=== PATIENT | male | born 1970 | race Two or more races ===

== ENCOUNTER 2020-03-01 01:33 | Inpatient (IN) | payer SELFPAY ==
[~2020-03-01] VITALS: Ht 175.3 cm; Wt 86.3 kg
--- NOTE | 2020-03-01 02:15 | PHYS DOC ---
General Adult EDM: Chief Complaint: LOWER EXT PAIN HPI: HPI: The history was obtained from the patient. Patient is a 49-year-old male with no reported PMH who presents with a chief complaint of left foot pain and swelling. Daughter was used as adjunct writing instructor via cell phone per the patient's request. Patient has had left foot pain and swelling gradually for the past 4 days. Denies any trauma or injury. 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 He denies any new footwear. States this is happened once with his left knee. He states he did receive a knee injection at that time. He is unsure what his diagnosis was at the time. Denies any known history of gout. Denies history of diabetes. Denies history of IV drug use. States it is painful to ambulate and bear weight. Has tried Tylenol at home with minimal relief. Note some mild redness and warmth to the base of his foot. Notes mild associated swelling. Denies knee pain. Denies fevers. Denies nausea or vomiting. Denies any history of peripheral vascular disease. No other compl aints. Review of Systems: Review of Systems: Constitutional: Denies fever or chills. [] Eyes: Denies change in visual acuity. [] HENT: Denies nasal congestion or sore throat. [] Respiratory: Denies cough or shortness of breath. [] Cardiovascular: Denies chest pain or edema. [] GI: Denies abdominal pain, nausea, vomiting, bloody stools or diarrhea. [] : Denies dysuria. [] Musculoskeletal: Positive for foot pain Integument: Denies rash. [] Neurologic: Denies headache, focal weakness or sensory changes. [] Endocrine: Denies polyuria or polydipsia. [] Lymphatic: Denies swollen glands. [] Psychiatric: Denies depression or anxiety. [] Heart Score: Risk Factors: Risk Factors: DM, Current or recent (<one month) smoker, HTN, HLP, family history of CAD, obesity. Risk Scores: Score 0 - 3: 2.5% MACE over next 6 weeks - Discharge Home Score 4 - 6: 20.3% MACE over next 6 weeks - Admit for Clinical Observation Score 7 - 10: 72.7% MACE over next 6 weeks - Early Invasive Strategies Physical Exam: PE: Constitutional: Well developed, well nourished, no acute distress, non-toxic appearance. [] HENT: Normocephalic, atraumatic, bilateral external ears normal, oropharynx moist, no oral exudates, nose normal. [] Eyes: PERRLA, EOMI, conjunctiva normal, no discharge. [] Neck: Normal range of motion, no tenderness, supple, no stridor. [] Cardiovascular:Heart rate regular rhythm, no murmur [] Lungs & Thorax: Bilateral breath sounds clear to auscultation [] Abdomen:soft, no tenderness, no masses, no pulsatile masses. [] Skin: Warm, dry, no erythema, no rash. [] Back: No tenderness, no CVA tenderness. [] Extremities: L KNEE/ANKLE/FOOT: Focal tenderness to palpation at the plantar aspect of the left foot.. Tissue compartments are soft. Distal pulses are 2+. Knee extension is intact. Plantar flexion is intact. Proximal fibula is not tender to palpation. Medial malleolus is not tender to palpation. Lateral malleolus is not tender to palpation. 5th metatarsal head is not tender to palpation. There is no obvious deformity. Passive ROM is reduced due to pain. Active ROM is reduced due to pain. Mild diffuse swelling noted to the left foot. Mild erythema to the plantar aspect of the left foot. No palpable fluctuance. No crepitus appreciated. No induration noted. No obvious podagra present. Neurologic: Alert and oriented X 3, normal motor function, normal sensory function, no focal deficits noted. [] Psychologic: Affect normal, judgement normal, mood normal. [] Current Patient Data: Labs: Laboratory Tests Test 03/01/20 02:10 White Blood Count 10.1 x10^3/uL Red Blood Count 5.07 x10^6/uL Hemoglobin 15.1 g/dL Hematocrit 43.2 % Mean Corpuscular Volume 85 fL Mean Corpuscular Hemoglobin 30 pg Mean Corpuscular Hemoglobin Concent 35 g/dL Red Cell Distribution Width 13.6 % Platelet Count 253 x10^3/uL Neutrophils (%) (Auto) 72 % Lymphocytes (%) (Auto) 17 % Monocytes (%) (Auto) 9 % Eosinophils (%) (Auto) 1 % Basophils (%) (Auto) 0 % Neutrophils # (Auto) 7.3 x10^3/uL Lymphocytes # (Auto) 1.7 x10^3/uL Monocytes # (Auto) 0.9 x10^3/uL Eosinophils # (Auto) 0.1 x10^3/uL Basophils # (Auto) 0.0 x10^3/uL Sodium Level 139 mmol/L Potassium Level 4.4 mmol/L Chloride Level 102 mmol/L Carbon Dioxide Level 29 mmol/L Anion Gap 8 Blood Urea Nitrogen 18 mg/dL Creatinine 1.0 mg/dL Estimated GFR (Cockcroft-Gault) 79.8 Glucose Level 113 mg/dL Calcium Level 8.7 mg/dL Current Medications Medications (Trade) Dose Ordered Sig/Yuriy Route PRN Reason Start Time Stop Time Status Last Admin Dose Admin Acetaminophen/ Hydrocodone Bitart (Lortab 5/325) 2 tab 1X ONCE PO 03/01/20 03:00 03/01/20 03:01 DC 03/01/20 02:46 Cephalexin HCl (Keflex) 1,000 mg 1X ONCE PO 03/01/20 03:00 03/01/20 03:01 DC 03/01/20 02:46 Laboratory Tests Test 03/01/20 02:10 03/01/20 05:11 White Blood Count 10.1 x10^3/uL Red Blood Count 5.07 x10^6/uL Hemoglobin 15.1 g/dL Hematocrit 43.2 % Mean Corpuscular Volume 85 fL Mean Corpuscular Hemoglobin 30 pg Mean Corpuscular Hemoglobin Concent 35 g/dL Red Cell Distribution Width 13.6 % Platelet Count 253 x10^3/uL Neutrophils (%) (Auto) 72 % Lymphocytes (%) (Auto) 17 % Monocytes (%) (Auto) 9 % Eosinophils (%) (Auto) 1 % Basophils (%) (Auto) 0 % Neutrophils # (Auto) 7.3 x10^3/uL Lymphocytes # (Auto) 1.7 x10^3/uL Monocytes # (Auto) 0.9 x10^3/uL Eosinophils # (Auto) 0.1 x10^3/uL Basophils # (Auto) 0.0 x10^3/uL Sodium Level 139 mmol/L Potassium Level 4.4 mmol/L Chloride Level 102 mmol/L Carbon Dioxide Level 29 mmol/L Anion Gap 8 Blood Urea Nitrogen 18 mg/dL Creatinine 1.0 mg/dL Estimated GFR (Cockcroft-Gault) 79.8 Glucose Level 113 mg/dL Calcium Level 8.7 mg/dL C-Reactive Protein, Quantitative 82.9 mg/L Body Fluid Source Synovial Body Fluid Color Yellow Body Fluid Clarity Cloudy Body Fluid Nucleated Cells 9500 /cmm Body Fluid Mononuclear WBCs (%) 10 % Body Fluid Polymorphonuclear Cells 90 % Body Fluid Total RBCs Counted 4250 /cmm Current Medications Medications (Trade) Dose Ordered Sig/Yuriy Route PRN Reason Start Time Stop Time Status Last Admin Dose Admin Acetaminophen/ Hydrocodone Bitart (Lortab 5/325) 2 tab 1X ONCE PO 03/01/20 03:00 03/01/20 03:01 DC 03/01/20 02:46 Cephalexin HCl (Keflex) 1,000 mg 1X ONCE PO 03/01/20 03:00 03/01/20 03:01 DC 03/01/20 02:46 Ketorolac Tromethamine (Toradol 30mg Vial) 30 mg 1X ONCE IM 03/01/20 04:00 03/01/20 04:01 DC Iohexol (Omnipaque 300 Mg/ml) 75 ml 1X ONCE IV 03/01/20 05:00 03/01/20 05:01 DC 03/01/20 05:13 Info (CONTRAST GIVEN -- Rx MONITORING) 1 each PRN DAILY PRN MC SEE COMMENTS 03/01/20 04:30 03/03/20 04:29 Ketorolac Tromethamine (Toradol 15mg Vial) 15 mg 1X ONCE IVP 03/01/20 05:00 03/01/20 05:01 DC 03/01/20 04:31 Ketorolac Tromethamine (Toradol 15mg Vial) 15 mg STK-MED ONCE .ROUTE 03/01/20 04:29 03/01/20 04:29 DC Ondansetron HCl (Zofran) 4 mg STK-MED ONCE .ROUTE 03/01/20 06:05 03/01/20 06:05 DC Vancomycin HCl 2 gm/Sodium Chloride 500 ml @ 250 mls/hr 1X ONCE IV 03/01/20 06:30 03/01/20 08:29 Ceftriaxone Sodium (Rocephin) 1 gm 1X ONCE IVP 03/01/20 06:30 03/01/20 06:31 EKG: EKG: [] Radiology/Procedures: Radiology/Procedures: [facility] [address] [place] [address] IMAGING REPORT Signed PATIENT: VIANNEY CAVAZOS ACCOUNT: [id number] : 1970 LOCATION: ER AGE: 49 SEX: M EXAM STATUS: REG ER ORD. PHYSICIAN: EMMANUEL RAMIREZ DO REASON: l ankle/foot pain and swelling. eval for infection and ankle effusion PROCEDURE: CT LOW EXTREMITY W/CONTRAST LT INDICATION: Reason: l ankle/foot pain and swelling. eval for infection and ankle effusion / Spl. Instructions: OMNI 300, 75 ML IV / History: COMPARISON: None. TECHNIQUE: Axial CT images obtained through the left ankle with contrast. One or more of the following individualized dose reduction techniques were utilized for this examination: 1. Automated exposure control; 2. Adjustment of the mA and/or kV according to patient size; 3. Use of iterative reconstruction technique. FINDINGS: Moderate tibiotalar joint effusion is seen both anteriorly and posteriorly with enhancement of the synovial lining. There is edema to the soft tissues at the ankle and foot. A definite ankle fracture is not seen. There is some degenerative changes. IMPRESSION: * Tibiotalar joint effusion is identified with synovial enhancement. Given the synovial enhancement this could be infectious or inflammatory in nature. * If there is high concern for osteomyelitis MRI or bone scan could better assess given the limitations of CT. * Degenerative changes are identified. Electronically signed by: Patience Henry MD (03/01/2020 4:47 AM) [id number] DICTATED and SIGNED BY: PATIENCE HENRY MD DATE: 03/01/20 0447 [][facility] [address] [place], [place] [id number] IMAGING REPORT Signed PATIENT: VIANNEY CAVAZOS ACCOUNT: [id number] : 1970 LOCATION: ER AGE: 49 SEX: M EXAM STATUS: PRE ER ORD. PHYSICIAN: EMMANUEL RAMIREZ DO REASON: foot pain with swelling. atraumatic PROCEDURE: FOOT LEFT 3V INDICATION: Reason: foot pain with swelling. atraumatic / Spl. Instructions: / History: COMPARISON: None. IMPRESSION: Left foot: 3 views obtained. There is some edema within the soft tissues. Degenerative changes are identified without a definite acute fracture or dislocation. Suspected tibiotalar joint effusion. Small plantar calcaneal spur. Electronically signed by: Patience Henry MD (03/01/2020 2:56 AM) [id number] DICTATED and SIGNED BY: PATIENCE HENRY MD DATE: 03/01/20 0256 Procedure Arthrocentesis The indication, was to rule-out septic arthritis of the ankle as well as to further evaluate for the cause of the patient's effusion, such as gout or pseudogout. The risks (infection, bleeding, pain, etc) and the benefits were discussed with the patient, and verbal consent was given to proceed. The appropriate land coleman were identified. Skin was sterilized with Betadine. Then using a sterile 18g needle, and sterile technique, I then inserted the needle in the medial anterior position, while withdrawing on the syringe plunger. 2 MLs of serous synovial fluid was obtained. This was sent down to the lab for joint analysis, as well as for culture. A dressing was placed, and the patient tolerated the procedure well. My repeat neurovascular exam post- procedure was unchanged. Instructions were given to seek immediate care for increasing pain, increasing redness, streaking, or any other worrisome concerns. Course & Med Decision Making: Course & Med Decision Making Pertinent Labs and Imaging studies reviewed. (See chart for details) Patient is a 49-year-old male who presents with chief complaint of left ankle and foot swelling atraumatic nature of the past several days. Initial vital signs unremarkable. Labs show no signs of leukocytosis. CRP was significantly elevated. CT imaging of the left ankle joint does reveal moderate effusion. Arthrocentesis performed and noted above. Synovial fluid analysis likely not consistent with septic arthritis however he does have approximately 10,000 white blood cells. With neutrophilic predominance. Synovial fluid cultures are pending at this time. He was given vancomycin and Rocephin. At the end of arthrocentesis procedure patient did have a vasovagal episode and syncopized briefly. He was quickly alert and responsive shortly following. However, patient did have another episode where he experienced vasovagal syncope and was unresponsive for 3 to 5 seconds. Heart rate did drop to approximately 25 and blood pressure dropped to 65/40. No atropine or pacing was required. Patient did receive 2 L normal saline bolus. This did improve his vital signs significantly. Patient did remain hemodynamically stable after this episode. He will require hospitalization for further work-up of his left ankle joint effusion and monitoring of his vasovagal episodes. Dragon Disclaimer: Dragon Disclaimer: This electronic medical record was generated, in whole or in part, using a voice recognition dictation system. Departure Departure Impression: Primary Impression: Left ankle effusion Additional Impressions: Vasovagal syncope Bradycardia Disposition: ADMITTED INPATIENT Condition: STABLE Justicifation of Admission Dx: Justifications for Admission: Justification of Admission Dx: Yes Comments: L ankle effusions and vasovagal syncope EMMANUEL RAMIREZ DO Mar 01, 2020 02:15
[2020-03-01 02:33] LABS: BASO % 0 % (0-3); EOS # 0.1 x10^3/uL (0.0-0.7); EOS % 1 % (0-3); HEMATOCRIT 43.2 % (39.0-53.0); HEMOGLOBIN 15.1 g/dL (13.0-17.5); LYMPH # 1.7 x10^3/uL (1.0-4.8); LYMPH % 17 % (24-48); MEAN CORPUSCULAR HEMOGLOBIN 30 pg (25-35); MEAN CORPUSCULAR HGB CONC 35 g/dL (31-37); MEAN CORPUSCULAR VOLUME 85 fL (79-100); MONO # 0.9 x10^3/uL (0.0-1.1); MONO % 9 % (0-9); NEUT # 7.3 x10^3/uL (1.8-7.7); NEUT % 72 % (31-73); PLATELET COUNT 253 x10^3/uL (140-400); RED BLOOD COUNT 5.07 x10^6/uL (4.30-5.70); RED CELL DISTRIBUTION WIDTH 13.6 % (11.5-14.5); WHITE BLOOD COUNT 10.1 x10^3/uL (4.0-11.0)
[2020-03-01 02:44] LABS: CALCIUM 8.7 mg/dL (8.5-10.1); GFR 79.8; POTASSIUM 4.4 mmol/L (3.5-5.1)
--- NOTE | 2020-03-01 02:59 | RAD ---
INDICATION: Reason: foot pain with swelling. atraumatic / Spl. Instructions: / History: COMPARISON: None. IMPRESSION: Left foot: 3 views obtained. There is some edema within the soft tissues. Degenerative changes are identified without a definite acute fracture or dislocation. Suspected tibiotalar joint effusion. Small plantar calcaneal spur. Electronically signed by: Marcus Sharma MD (03/01/2020 2:56 AM) [id number]
[2020-03-01] MEDS ORDERED: HYDROcodone/APAP 5/325MG 1 TAB TABLET PO ONE (03:00)
[2020-03-01] MEDS ORDERED: CEPHALEXIN 250 MG CAPSULE. PO ONE (03:00)
[2020-03-01] MEDS ORDERED: KETOROLAC 30 MG/ML VIAL. IM ONE (04:00)
[2020-03-01] MEDS ORDERED: KETOROLAC 15 MG/ML VIAL. ONE (04:29)
[2020-03-01] MEDS ORDERED: CONTRAST GIVEN. MC PRN (04:30)
--- NOTE | 2020-03-01 04:49 | RAD ---
INDICATION: Reason: l ankle/foot pain and swelling. eval for infection and ankle effusion / Spl. Instructions: OMNI 300, 75 ML IV / History: COMPARISON: None. TECHNIQUE: Axial CT images obtained through the left ankle with contrast. One or more of the following individualized dose reduction techniques were utilized for this examination: 1. Automated exposure control; 2. Adjustment of the mA and/or kV according to patient size; 3. Use of iterative reconstruction technique. FINDINGS: Moderate tibiotalar joint effusion is seen both anteriorly and posteriorly with enhancement of the synovial lining. There is edema to the soft tissues at the ankle and foot. A definite ankle fracture is not seen. There is some degenerative changes. IMPRESSION: * Tibiotalar joint effusion is identified with synovial enhancement. Given the synovial enhancement this could be infectious or inflammatory in nature. * If there is high concern for osteomyelitis MRI or bone scan could better assess given the limitations of CT. * Degenerative changes are identified. Electronically signed by: Marcus Sharma MD (03/01/2020 4:47 AM) [id number]
[2020-03-01] MEDS ORDERED: IOHEXOL 300 MG/ML 100ML VIAL. IV ONE (05:00)
[2020-03-01] MEDS ORDERED: KETOROLAC 15 MG/ML VIAL. IVP ONE (05:00)
[2020-03-01 05:57] LABS: BF COLOR YELLOW; BF SOURCE SYNOVIAL
[2020-03-01 05:58] LABS: BF CLARITY CLOUDY; BF MON % 10 %; BF PMN % 90 %; BF RBC COUNT 4250 /cmm (Not Established); BF WBC COUNT 9500 /cmm (Not Established)
[2020-03-01] MEDS ORDERED: ONDANSETRON PF 4 MG/2 ML VIAL. ONE (06:05)
[2020-03-01] MEDS ORDERED: ONDANSETRON PF 4 MG/2 ML VIAL. IV PRN (06:30)
[2020-03-01] MEDS ORDERED: VANCOMYCIN 2 GM in IV NORMAL SALINE 500ML BAG 500 ML IV ONE (06:30)
[2020-03-01] MEDS ORDERED: cefTRIAXone IV Push 1 GM VIAL. IVP ONE (06:30)
[2020-03-01] MEDS: VANCOMYCIN PER PHARMACY MC PRN (06:47)
--- NOTE | 2020-03-01 06:48 | NUR ---
Pharmacy Vancomycin Dosing Note S:Consulted to monitor and dose vancomycin started 03/01/20. O:VIANNEY CAVAZOS is a 49 year old M with Empiric . Height: 5 feet, 9 inches Weight: 86.3 kg Rugby Body Weight: 70.70 Adjusted Body Weight: 76.94 Dosing Weight: Actual Other Antibiotics: LABS: Last BUN: 18 Last Creatinine: 1 Creatinine Clearance: 98 mL/min Last WBC: 10.1 Last Procalcitonin: Tmax (past 24 hours): 98.1 Microbiology: I/O: Drug Levels: Last level: on at Last dose given 03/01/20 at 0630 Vancomycin Dosing: Loading Dose: 2000 mg x1 Dosing Weight: Actual Target Trough: 15-20 A: Based on: WT AND CRCL P: 1. Begin Vancomycin 1250 mg IV q12h 2. Follow up Trough level on 03/02/20 at 1830 3. Pharmacy will continue to monitor, follow and adjust therapy as needed. KATIE STARK RPH, 03/01/20 [facility] Signed: 03/01/20 at 0648 by KATIE STARK RPH PHA
--- NOTE | 2020-03-01 09:26 | PDOC1 ---
History and Physical Date of Service: DOS: DATE: 03/01/20 TIME: 09:22 Chief Complaint: Chief Complain: left lower extremity pain History of Present Illness: HPI: Patient is a 49-year-old male Turkmen-speaking who comes to the ED with left foot pain and swelling that has progressively worsened the past 4 days. Pain is a 10 and patient notes is unable to move his ankle. Patient states that even pl acing bedsheets over his foot causes him severe pain. Most of the history was obtained with the daughter in the room. 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 Patient also states that swelling had also occurred in his left knee and he did get a steroid injection at that time. Denies fevers, malaise, rashes, dysuria, diarrhea, abdominal pain, chest pain, or joint disfiguration. Past Medical/Surgical History: PMH/PSH: Reviewed and none reported Allergies: Allergies: Coded Allergies: No Known Drug Allergies (Unverified , 03/01/20) Family History: Family History: Reviewed and none reported. No family history of rheumatoid arthritis. Social History: Social History: Denies alcohol, smoking, drug abuse Current Medications: Current Medications Current Medications Acetaminophen/ Hydrocodone Bitart (Lortab 5/325) 2 tab 1X ONCE PO Last administered on 03/01/20at 02:46; Start 03/01/20 at 03:00; Stop 03/01/20 at 03:01; Status DC Cephalexin HCl (Keflex) 1,000 mg 1X ONCE PO Last administered on 03/01/20at 02:46; Start 03/01/20 at 03:00; Stop 03/01/20 at 03:01; Status DC Ketorolac Tromethamine (Toradol 30mg Vial) 30 mg 1X ONCE IM ; Start 03/01/20 at 04:00; Stop 03/01/20 at 04:01; Status DC Iohexol (Omnipaque 300 Mg/ml) 75 ml 1X ONCE IV Last administered on 03/01/20at 05:13; Start 03/01/20 at 05:00; Stop 03/01/20 at 05:01; Status DC Info (CONTRAST GIVEN -- Rx MONITORING) 1 each PRN DAILY PRN MC SEE COMMENTS; Start 03/01/20 at 04:30; Stop 03/03/20 at 04:29 Ketorolac Tromethamine (Toradol 15mg Vial) 15 mg 1X ONCE IVP Last administered on 03/01/20at 04:31; Start 03/01/20 at 05:00; Stop 03/01/20 at 05:01; Status DC Ketorolac Tromethamine (Toradol 15mg Vial) 15 mg STK-MED ONCE .ROUTE ; Start 03/01/20 at 04:29; Stop 03/01/20 at 04:29; Status DC Ondansetron HCl (Zofran) 4 mg STK-MED ONCE .ROUTE ; Start 03/01/20 at 06:05; Stop 03/01/20 at 06:05; Status DC Vancomycin HCl 2 gm/Sodium Chloride 500 ml @ 250 mls/hr 1X ONCE IV Last administered on 03/01/20at 06:23; Start 03/01/20 at 06:30; Stop 03/01/20 at 08:29; Status DC Ceftriaxone Sodium (Rocephin) 1 gm 1X ONCE IVP Last administered on 03/01/20at 06:23; Start 03/01/20 at 06:30; Stop 03/01/20 at 06:31; Status DC Ondansetron HCl (Zofran) 4 mg PRN Q8HRS PRN IV NAUSEA/VOMITING 1ST CHOICE; Start 03/01/20 at 06:30; Stop 03/02/20 at 06:29 Morphine Sulfate (Morphine Sulfate) 4 mg PRN Q2HR PRN IV SEVERE PAIN 7-10; Start 03/01/20 at 06:30; Stop 03/02/20 at 06:29 Vancomycin HCl (Vanco Per Pharmacy) 1 each PRN DAILY PRN MC SEE COMMENTS Last administered on 03/01/20at 06:47; Start 03/01/20 at 06:30 Vancomycin HCl 1.25 gm/Sodium Chloride 250 ml @ 167 mls/hr Q12H IV ; Start 03/01/20 at 19:00 Vancomycin HCl (Vancomycin Trough Level) 1 each 1X ONCE MC ; Start 03/02/20 at 18:30; Stop 03/02/20 at 18:31 ROS: Review of Systems Review of System REVIEW OF SYSTEMS: GENERAL: Denies weakness SKIN: No bruising, hair changes or rashes. EYES: No blurred, double or loss of vision. NOSE AND THROAT: No history of nosebleeds, hoarseness or sore throat. HEART: No history of palpitations, chest pain or shortness of breath on exertion. LUNGS: Denies cough, hemoptysis, wheezing or shortness of breath. GASTROINTESTINAL: Denies changes in appetite, nausea, vomiting, diarrhea or constipation. GENITOURINARY: No history of frequency, urgency, hesitancy or nocturia. NEUROLOGIC: Denies history of numbness, tingling, or tremor. PSYCHIATRIC: No history of panic, anxiety or depression. ENDOCRINE: No history of heat or cold intolerance, polyuria or polydipsia. EXTREMITIES: Denies joint pain, pain on walking or stiffness. Physical Exam: Vital Signs: Vital Signs Date Time Temp Pulse Resp B/P (MAP) Pulse Ox O2 Delivery O2 Flow Rate FiO2 03/01/20 07:14 97.9 78 15 129/82 (98) 97 Room Air 97.9 Physcial Exam: GEN: No apparent distress. Alert and oriented HEENT: Normal cephalic, atraumatic, external auditory canals are patent EYES: Extraocular muscles are intact, pupil are equally round and reactive to light and accommodation MUSCULOSKELETAL: Well developed , well nourished, good range of motion ENDOCRINE: No thyromegaly was palpated LYMPHATICS: No cervical chain or axillary nodes were noted HEMATOPOIETIC: No bruising NECK: Supple, no JVD, no thyromegaly was noted LUNGS: Clear to auscultation in all lung euceda without rhonchi or wheezing HEART: RRR, S!, S2 present. Peripheral pulses intact, no obvious murmurs noted ABDOMEN: Soft, nontender. Positive bowel sounds, no organomegaly, normal bowel sounds EXTREMITIES: Without clubbing, cyanosis, or edema. Pedal pulses intact. Negative Homans sign NEUROLOGIC: Normal speech and tone. A&O x 3, moves all extremities, no obvious focal deficits PSYCHIATRIC: Normal affect, normal mood. Stable SKIN: No ulcerations or rashes, good skin turgor, no jaundice VASCULAR: Good capillary refill, neurovascular bundle appears to be intact Labs: Labs: Laboratory Tests Test 03/01/20 02:10 03/01/20 05:11 White Blood Count 10.1 x10^3/uL (4.0-11.0) Red Blood Count 5.07 x10^6/uL (4.30-5.70) Hemoglobin 15.1 g/dL (13.0-17.5) Hematocrit 43.2 % (39.0-53.0) Mean Corpuscular Volume 85 fL (79-100) Mean Corpuscular Hemoglobin 30 pg (25-35) Mean Corpuscular Hemoglobin Concent 35 g/dL (31-37) Red Cell Distribution Width 13.6 % (11.5-14.5) Platelet Count 253 x10^3/uL (140-400) Neutrophils (%) (Auto) 72 % (31-73) Lymphocytes (%) (Auto) 17 % (24-48) Monocytes (%) (Auto) 9 % (0-9) Eosinophils (%) (Auto) 1 % (0-3) Basophils (%) (Auto) 0 % (0-3) Neutrophils # (Auto) 7.3 x10^3/uL (1.8-7.7) Lymphocytes # (Auto) 1.7 x10^3/uL (1.0-4.8) Monocytes # (Auto) 0.9 x10^3/uL (0.0-1.1) Eosinophils # (Auto) 0.1 x10^3/uL (0.0-0.7) Basophils # (Auto) 0.0 x10^3/uL (0.0-0.2) Sodium Level 139 mmol/L (136-145) Potassium Level 4.4 mmol/L (3.5-5.1) Chloride Level 102 mmol/L (98-107) Carbon Dioxide Level 29 mmol/L (21-32) Anion Gap 8 (6-14) Blood Urea Nitrogen 18 mg/dL (8-26) Creatinine 1.0 mg/dL (0.7-1.3) Estimated GFR (Cockcroft-Gault) 79.8 Glucose Level 113 mg/dL (70-99) Calcium Level 8.7 mg/dL (8.5-10.1) C-Reactive Protein, Quantitative 82.9 mg/L (0-3.3) Body Fluid Source Synovial Body Fluid Color Yellow Body Fluid Clarity Cloudy Body Fluid Nucleated Cells 9500 /cmm (Not Established) Body Fluid Mononuclear WBCs (%) 10 % Body Fluid Polymorphonuclear Cells 90 % Body Fluid Total RBCs Counted 4250 /cmm (Not Established) Laboratory Tests Test 03/01/20 02:10 03/01/20 05:11 White Blood Count 10.1 x10^3/uL (4.0-11.0) Red Blood Count 5.07 x10^6/uL (4.30-5.70) Hemoglobin 15.1 g/dL (13.0-17.5) Hematocrit 43.2 % (39.0-53.0) Mean Corpuscular Volume 85 fL (79-100) Mean Corpuscular Hemoglobin 30 pg (25-35) Mean Corpuscular Hemoglobin Concent 35 g/dL (31-37) Red Cell Distribution Width 13.6 % (11.5-14.5) Platelet Count 253 x10^3/uL (140-400) Neutrophils (%) (Auto) 72 % (31-73) Lymphocytes (%) (Auto) 17 % (24-48) Monocytes (%) (Auto) 9 % (0-9) Eosinophils (%) (Auto) 1 % (0-3) Basophils (%) (Auto) 0 % (0-3) Neutrophils # (Auto) 7.3 x10^3/uL (1.8-7.7) Lymphocytes # (Auto) 1.7 x10^3/uL (1.0-4.8) Monocytes # (Auto) 0.9 x10^3/uL (0.0-1.1) Eosinophils # (Auto) 0.1 x10^3/uL (0.0-0.7) Basophils # (Auto) 0.0 x10^3/uL (0.0-0.2) Sodium Level 139 mmol/L (136-145) Potassium Level 4.4 mmol/L (3.5-5.1) Chloride Level 102 mmol/L (98-107) Carbon Dioxide Level 29 mmol/L (21-32) Anion Gap 8 (6-14) Blood Urea Nitrogen 18 mg/dL (8-26) Creatinine 1.0 mg/dL (0.7-1.3) Estimated GFR (Cockcroft-Gault) 79.8 Glucose Level 113 mg/dL (70-99) Calcium Level 8.7 mg/dL (8.5-10.1) C-Reactive Protein, Quantitative 82.9 mg/L (0-3.3) Body Fluid Source Synovial Body Fluid Color Yellow Body Fluid Clarity Cloudy Body Fluid Nucleated Cells 9500 /cmm (Not Established) Body Fluid Mononuclear WBCs (%) 10 % Body Fluid Polymorphonuclear Cells 90 % Body Fluid Total RBCs Counted 4250 /cmm (Not Established) Images: Images Left FOOT XR IMPRESSION: Left foot: 3 views obtained. There is some edema within the soft tissues. Degenerative changes are identified without a definite acute fracture or dislocation. Suspected tibiotalar joint effusion. Small plantar calcaneal spur. LLE CT IMPRESSION: * Tibiotalar joint effusion is identified with synovial enhancement. Given the synovial enhancement this could be infectious or inflammatory in nature. * If there is high concern for osteomyelitis MRI or bone scan could better assess given the limitations of CT. * Degenerative changes are identified. Assessment/Plan Assessment/Plan Left tibiotalar joint effusion and degenerative changes are identified with synovial enhancement. Admit to medicine Leg elevation Pain control Ortho consult Lovenox for DVT prophylaxis ADA diet Full code Discussed with RN and SW Disposition pending Ortho evaluation Surrogate decision maker is the Justifications for Admission Other Justification BRENT BARNES MD Mar 01, 2020 09:26
--- NOTE | 2020-03-01 09:44 | PDOC2 ---
CONSULT Date of Consult Date of Consult DATE: 03/01/20 TIME: 09:42 Current Problem List Problem List Problems Medical Problems: (1) Bradycardia Status: Acute (2) Left ankle effusion Status: Acute (3) Vasovagal syncope Status: Acute Current Medications Current Medications Current Medications Acetaminophen/ Hydrocodone Bitart (Lortab 5/325) 2 tab 1X ONCE PO Last administered on 03/01/20at 02:46; Start 03/01/20 at 03:00; Stop 03/01/20 at 03:01; Status DC Cephalexin HCl (Keflex) 1,000 mg 1X ONCE PO Last administered on 03/01/20at 02:46; Start 03/01/20 at 03:00; Stop 03/01/20 at 03:01; Status DC Ketorolac Tromethamine (Toradol 30mg Vial) 30 mg 1X ONCE IM ; Start 03/01/20 at 04:00; Stop 03/01/20 at 04:01; Status DC Iohexol (Omnipaque 300 Mg/ml) 75 ml 1X ONCE IV Last administered on 03/01/20at 05:13; Start 03/01/20 at 05:00; Stop 03/01/20 at 05:01; Status DC Info (CONTRAST GIVEN -- Rx MONITORING) 1 each PRN DAILY PRN MC SEE COMMENTS; Start 03/01/20 at 04:30; Stop 03/03/20 at 04:29 Ketorolac Tromethamine (Toradol 15mg Vial) 15 mg 1X ONCE IVP Last administered on 03/01/20at 04:31; Start 03/01/20 at 05:00; Stop 03/01/20 at 05:01; Status DC Ketorolac Tromethamine (Toradol 15mg Vial) 15 mg STK-MED ONCE .ROUTE ; Start 03/01/20 at 04:29; Stop 03/01/20 at 04:29; Status DC Ondansetron HCl (Zofran) 4 mg STK-MED ONCE .ROUTE ; Start 03/01/20 at 06:05; Stop 03/01/20 at 06:05; Status DC Vancomycin HCl 2 gm/Sodium Chloride 500 ml @ 250 mls/hr 1X ONCE IV Last administered on 03/01/20at 06:23; Start 03/01/20 at 06:30; Stop 03/01/20 at 08:29; Status DC Ceftriaxone Sodium (Rocephin) 1 gm 1X ONCE IVP Last administered on 03/01/20at 06:23; Start 03/01/20 at 06:30; Stop 03/01/20 at 06:31; Status DC Ondansetron HCl (Zofran) 4 mg PRN Q8HRS PRN IV NAUSEA/VOMITING 1ST CHOICE; Start 03/01/20 at 06:30; Stop 03/02/20 at 06:29 Morphine Sulfate (Morphine Sulfate) 4 mg PRN Q2HR PRN IV SEVERE PAIN 7-10; Start 03/01/20 at 06:30; Stop 03/02/20 at 06:29 Vancomycin HCl (Vanco Per Pharmacy) 1 each PRN DAILY PRN MC SEE COMMENTS Last administered on 03/01/20at 06:47; Start 03/01/20 at 06:30 Vancomycin HCl 1.25 gm/Sodium Chloride 250 ml @ 167 mls/hr Q12H IV ; Start 03/01/20 at 19:00 Vancomycin HCl (Vancomycin Trough Level) 1 each 1X ONCE MC ; Start 03/02/20 at 18:30; Stop 03/02/20 at 18:31 Allergies Allergies: Coded Allergies: No Known Drug Allergies (Unverified , 03/01/20) Vitals VITALS Vital Signs Date Time Temp Pulse Resp B/P (MAP) Pulse Ox O2 Delivery O2 Flow Rate FiO2 03/01/20 07:14 97.9 78 15 129/82 (98) 97 Room Air 97.9 Labs Labs Laboratory Tests Test 03/01/20 02:10 03/01/20 05:11 White Blood Count 10.1 x10^3/uL (4.0-11.0) Red Blood Count 5.07 x10^6/uL (4.30-5.70) Hemoglobin 15.1 g/dL (13.0-17.5) Hematocrit 43.2 % (39.0-53.0) Mean Corpuscular Volume 85 fL (79-100) Mean Corpuscular Hemoglobin 30 pg (25-35) Mean Corpuscular Hemoglobin Concent 35 g/dL (31-37) Red Cell Distribution Width 13.6 % (11.5-14.5) Platelet Count 253 x10^3/uL (140-400) Neutrophils (%) (Auto) 72 % (31-73) Lymphocytes (%) (Auto) 17 % (24-48) Monocytes (%) (Auto) 9 % (0-9) Eosinophils (%) (Auto) 1 % (0-3) Basophils (%) (Auto) 0 % (0-3) Neutrophils # (Auto) 7.3 x10^3/uL (1.8-7.7) Lymphocytes # (Auto) 1.7 x10^3/uL (1.0-4.8) Monocytes # (Auto) 0.9 x10^3/uL (0.0-1.1) Eosinophils # (Auto) 0.1 x10^3/uL (0.0-0.7) Basophils # (Auto) 0.0 x10^3/uL (0.0-0.2) Sodium Level 139 mmol/L (136-145) Potassium Level 4.4 mmol/L (3.5-5.1) Chloride Level 102 mmol/L (98-107) Carbon Dioxide Level 29 mmol/L (21-32) Anion Gap 8 (6-14) Blood Urea Nitrogen 18 mg/dL (8-26) Creatinine 1.0 mg/dL (0.7-1.3) Estimated GFR (Cockcroft-Gault) 79.8 Glucose Level 113 mg/dL (70-99) Calcium Level 8.7 mg/dL (8.5-10.1) C-Reactive Protein, Quantitative 82.9 mg/L (0-3.3) Body Fluid Source Synovial Body Fluid Color Yellow Body Fluid Clarity Cloudy Body Fluid Nucleated Cells 9500 /cmm (Not Established) Body Fluid Mononuclear WBCs (%) 10 % Body Fluid Polymorphonuclear Cells 90 % Body Fluid Total RBCs Counted 4250 /cmm (Not Established) Laboratory Tests Test 03/01/20 02:10 03/01/20 05:11 White Blood Count 10.1 x10^3/uL (4.0-11.0) Red Blood Count 5.07 x10^6/uL (4.30-5.70) Hemoglobin 15.1 g/dL (13.0-17.5) Hematocrit 43.2 % (39.0-53.0) Mean Corpuscular Volume 85 fL (79-100) Mean Corpuscular Hemoglobin 30 pg (25-35) Mean Corpuscular Hemoglobin Concent 35 g/dL (31-37) Red Cell Distribution Width 13.6 % (11.5-14.5) Platelet Count 253 x10^3/uL (140-400) Neutrophils (%) (Auto) 72 % (31-73) Lymphocytes (%) (Auto) 17 % (24-48) Monocytes (%) (Auto) 9 % (0-9) Eosinophils (%) (Auto) 1 % (0-3) Basophils (%) (Auto) 0 % (0-3) Neutrophils # (Auto) 7.3 x10^3/uL (1.8-7.7) Lymphocytes # (Auto) 1.7 x10^3/uL (1.0-4.8) Monocytes # (Auto) 0.9 x10^3/uL (0.0-1.1) Eosinophils # (Auto) 0.1 x10^3/uL (0.0-0.7) Basophils # (Auto) 0.0 x10^3/uL (0.0-0.2) Sodium Level 139 mmol/L (136-145) Potassium Level 4.4 mmol/L (3.5-5.1) Chloride Level 102 mmol/L (98-107) Carbon Dioxide Level 29 mmol/L (21-32) Anion Gap 8 (6-14) Blood Urea Nitrogen 18 mg/dL (8-26) Creatinine 1.0 mg/dL (0.7-1.3) Estimated GFR (Cockcroft-Gault) 79.8 Glucose Level 113 mg/dL (70-99) Calcium Level 8.7 mg/dL (8.5-10.1) C-Reactive Protein, Quantitative 82.9 mg/L (0-3.3) Body Fluid Source Synovial Body Fluid Color Yellow Body Fluid Clarity Cloudy Body Fluid Nucleated Cells 9500 /cmm (Not Established) Body Fluid Mononuclear WBCs (%) 10 % Body Fluid Polymorphonuclear Cells 90 % Body Fluid Total RBCs Counted 4250 /cmm (Not Established) Images Images Ankle x-ray report reviewed and images independently reviewed. There are some small tibiotalar osteophytes, minor degenerative changes. No acute fracture. [facility] [address] [place] [address] IMAGING REPORT Signed PATIENT: VIANNEY CAVAZOS ACCOUNT: [id number] : 1970 LOCATION: ER AGE: 49 SEX: M EXAM STATUS: PRE ER ORD. PHYSICIAN: EMMANUEL RAMIREZ DO REASON: foot pain with swelling. atraumatic PROCEDURE: FOOT LEFT 3V INDICATION: Reason: foot pain with swelling. atraumatic / Spl. Instructions: / History: COMPARISON: None. IMPRESSION: Left foot: 3 views obtained. There is some edema within the soft tissues. Degenerative changes are identified without a definite acute fracture or dislocation. Suspected tibiotalar joint effusion. Small plantar calcaneal spur. Electronically signed by: Patience Henry MD (03/01/2020 2:56 AM) [id number] DICTATED and SIGNED BY: PATIENCE HENRY MD DATE: 03/01/[address] ankle report reviewed and images independently reviewed. The small ankle effusion or synovial inflammation is seen on series 5 image 31. [facility] [address] [address] IMAGING REPORT Signed PATIENT: VIANNEY CAVAZOS ACCOUNT: [id number] : 1970 LOCATION: ER AGE: 49 SEX: M EXAM STATUS: REG ER ORD. PHYSICIAN: EMMANUEL RAMIREZ DO REASON: l ankle/foot pain and swelling. eval for infection and ankle effusion PROCEDURE: CT LOW EXTREMITY W/CONTRAST LT INDICATION: Reason: l ankle/foot pain and swelling. eval for infection and ankle effusion / Spl. Instructions: OMNI 300, 75 ML IV / History: COMPARISON: None. TECHNIQUE: Axial CT images obtained through the left ankle with contrast. One or more of the following individualized dose reduction techniques were utilized for this examination: 1. Automated exposure control; 2. Adjustment of the mA and/or kV according to patient size; 3. Use of iterative reconstruction technique. FINDINGS: Moderate tibiotalar joint effusion is seen both anteriorly and posteriorly with enhancement of the synovial lining. There is edema to the soft tissues at the ankle and foot. A definite ankle fracture is not seen. There is some degenerative changes. IMPRESSION: * Tibiotalar joint effusion is identified with synovial enhancement. Given the synovial enhancement this could be infectious or inflammatory in nature. * If there is high concern for osteomyelitis MRI or bone scan could better assess given the limitations of CT. * Degenerative changes are identified. Electronically signed by: Patience Henry MD (03/01/2020 4:47 AM) [id number] DICTATED and SIGNED BY: PATIENCE HENRY MD DATE: 03/01/20 0447 KAREN TOURE MD Mar 01, 2020 09:43
[2020-03-01] MEDS: MORPHINE SULFATE 4 MG/ML VIAL. IV PRN ×4 (12:45→22:46)
[2020-03-01] MEDS ORDERED: SENNOSIDES 8.6 MG TABLET PO PRN (16:00)
[2020-03-01] MEDS ORDERED: DOCUSATE SODIUM 100 MG CAPSULE. PO PRN (16:00)
[2020-03-01] MEDS ORDERED: ONDANSETRON PF 4 MG/2 ML VIAL. IVP PRN (16:00)
[2020-03-01] MEDS: ENOXAPARIN 40 MG/0.4 ML SYRINGE. SQ SCH (17:29)
[2020-03-01 19:15] VITALS: BP 141/82
[2020-03-01] MEDS: VANCOMYCIN 1.25 GM in IV NORMAL SALINE 250ML 250 ML IV SCH (20:18)
[2020-03-01 23:12] VITALS: BP 126/70
[2020-03-02 03:11] VITALS: BP 130/74
[2020-03-02] MEDS: MORPHINE SULFATE 4 MG/ML VIAL. IV PRN (06:30)
[2020-03-02 06:51] LABS: BASO % 1 % (0-3); EOS % 0 % (0-3); HEMATOCRIT 39.1 % (39.0-53.0); HEMOGLOBIN 13.5 g/dL (13.0-17.5); LYMPH % 11 % (24-48); MEAN CORPUSCULAR HEMOGLOBIN 29 pg (25-35); MEAN CORPUSCULAR HGB CONC 34 g/dL (31-37); MEAN CORPUSCULAR VOLUME 85 fL (79-100); MONO # 0.8 x10^3/uL (0.0-1.1); MONO % 9 % (0-9); NEUT # 7.2 x10^3/uL (1.8-7.7); NEUT % 79 % (31-73); PLATELET COUNT 247 x10^3/uL (140-400); RED CELL DISTRIBUTION WIDTH 13.7 % (11.5-14.5); WHITE BLOOD COUNT 9.1 x10^3/uL (4.0-11.0)
[2020-03-02 07:00] VITALS: BP 148/89
[2020-03-02] MEDS: VANCOMYCIN 1.25 GM in IV NORMAL SALINE 250ML 250 ML IV SCH (07:59)
--- NOTE | 2020-03-02 09:44 | NUR ---
SW following. Discussed with RN, pt from home, using crutches, room air, regular diet. PT ordered, pt on IV vanco. Med Assist following for self pay status. SW will continue to follow.
--- NOTE | 2020-03-02 10:42 | PDOC ---
ORTHO PROGRESS NOTES DATE: 03/02/20 TIME: 10:38 Subjective Communication with the aid of the patient's son as news librarian. Patient states that he is painful and that this has happened before. Procedure No specific trauma or injury noted. Vitals Vital Signs Date Time Temp Pulse Resp B/P (MAP) Pulse Ox O2 Delivery O2 Flow Rate FiO2 03/02/20 07:00 98.0 93 18 148/89 (108) 94 Room Air 98.0 Labs Laboratory Tests Test 03/01/20 02:10 03/01/20 05:11 03/02/20 06:10 White Blood Count 10.1 x10^3/uL (4.0-11.0) 9.1 x10^3/uL (4.0-11.0) Red Blood Count 5.07 x10^6/uL (4.30-5.70) 4.60 x10^6/uL (4.30-5.70) Hemoglobin 15.1 g/dL (13.0-17.5) 13.5 g/dL (13.0-17.5) Hematocrit 43.2 % (39.0-53.0) 39.1 % (39.0-53.0) Mean Corpuscular Volume 85 fL (79-100) 85 fL (79-100) Mean Corpuscular Hemoglobin 30 pg (25-35) 29 pg (25-35) Mean Corpuscular Hemoglobin Concent 35 g/dL (31-37) 34 g/dL (31-37) Red Cell Distribution Width 13.6 % (11.5-14.5) 13.7 % (11.5-14.5) Platelet Count 253 x10^3/uL (140-400) 247 x10^3/uL (140-400) Neutrophils (%) (Auto) 72 % (31-73) 79 % (31-73) Lymphocytes (%) (Auto) 17 % (24-48) 11 % (24-48) Monocytes (%) (Auto) 9 % (0-9) 9 % (0-9) Eosinophils (%) (Auto) 1 % (0-3) 0 % (0-3) Basophils (%) (Auto) 0 % (0-3) 1 % (0-3) Neutrophils # (Auto) 7.3 x10^3/uL (1.8-7.7) 7.2 x10^3/uL (1.8-7.7) Lymphocytes # (Auto) 1.7 x10^3/uL (1.0-4.8) 1.0 x10^3/uL (1.0-4.8) Monocytes # (Auto) 0.9 x10^3/uL (0.0-1.1) 0.8 x10^3/uL (0.0-1.1) Eosinophils # (Auto) 0.1 x10^3/uL (0.0-0.7) 0.0 x10^3/uL (0.0-0.7) Basophils # (Auto) 0.0 x10^3/uL (0.0-0.2) 0.0 x10^3/uL (0.0-0.2) Sodium Level 139 mmol/L (136-145) Potassium Level 4.4 mmol/L (3.5-5.1) Chloride Level 102 mmol/L (98-107) Carbon Dioxide Level 29 mmol/L (21-32) Anion Gap 8 (6-14) Blood Urea Nitrogen 18 mg/dL (8-26) Creatinine 1.0 mg/dL (0.7-1.3) Estimated GFR (Cockcroft-Gault) 79.8 Glucose Level 113 mg/dL (70-99) Calcium Level 8.7 mg/dL (8.5-10.1) C-Reactive Protein, Quantitative 82.9 mg/L (0-3.3) Body Fluid Source Synovial Body Fluid Color Yellow Body Fluid Clarity Cloudy Body Fluid Nucleated Cells 9500 /cmm (Not Established) Body Fluid Mononuclear WBCs (%) 10 % Body Fluid Polymorphonuclear Cells 90 % Body Fluid Total RBCs Counted 4250 /cmm (Not Established) Uric Acid 5.4 mg/dL (3.5-7.2) Laboratory Tests Test 03/02/20 06:10 White Blood Count 9.1 x10^3/uL (4.0-11.0) Red Blood Count 4.60 x10^6/uL (4.30-5.70) Hemoglobin 13.5 g/dL (13.0-17.5) Hematocrit 39.1 % (39.0-53.0) Mean Corpuscular Volume 85 fL (79-100) Mean Corpuscular Hemoglobin 29 pg (25-35) Mean Corpuscular Hemoglobin Concent 34 g/dL (31-37) Red Cell Distribution Width 13.7 % (11.5-14.5) Platelet Count 247 x10^3/uL (140-400) Neutrophils (%) (Auto) 79 % (31-73) Lymphocytes (%) (Auto) 11 % (24-48) Monocytes (%) (Auto) 9 % (0-9) Eosinophils (%) (Auto) 0 % (0-3) Basophils (%) (Auto) 1 % (0-3) Neutrophils # (Auto) 7.2 x10^3/uL (1.8-7.7) Lymphocytes # (Auto) 1.0 x10^3/uL (1.0-4.8) Monocytes # (Auto) 0.8 x10^3/uL (0.0-1.1) Eosinophils # (Auto) 0.0 x10^3/uL (0.0-0.7) Basophils # (Auto) 0.0 x10^3/uL (0.0-0.2) Uric Acid 5.4 mg/dL (3.5-7.2) X-Rays Ankle x-rays interpreted by Dr. Jackson that were negative for fracture or dislocation. Left knee x-rays ordered. Notes Awake and alert painful Assessment and Plan Per patient's son as news librarian he states that this has occurred before with no specific injury. We will have ordered a left knee x-ray for further evaluation. Continue antibiotics per admitting physician. TAWNY CASILLAS APRN Mar 02, 2020 10:42
[2020-03-02 11:00] VITALS: BP 132/84
[2020-03-02] MEDS ORDERED: MORPHINE SULFATE 4 MG/ML VIAL. IV PRN (11:00)
[2020-03-02] MEDS: COLCHICINE 0.6 MG TABLET PO SCH ×2 (13:20→21:17)
--- NOTE | 2020-03-02 13:21 | RAD ---
KNEE LEFT 2V DATE: 03/02/2020 10:13 AM INDICATION: cannot stand/no feeling/PAIN / Spl. Instructions: / History: COMPARISON: None. FINDINGS: Bones: There is no evidence of acute fracture or dislocation. Joints: The joint spaces are normal. Large knee joint effusion. Miscellaneous: None. IMPRESSION: No acute fracture. Large knee joint effusion. Electronically signed by: Gallo Banerjee MD (03/02/2020 1:18 PM) [id number]
[2020-03-02] MEDS ORDERED: oxyCODONE/APAP 5/325 1 TAB TABLET PO PRN (14:30)
[2020-03-02] MEDS: oxyCODONE/APAP 5/325 1 TAB TABLET PO PRN ×2 (14:58→19:05)
[2020-03-02 15:00] VITALS: BP 130/80
--- NOTE | 2020-03-02 16:50 | PDOC ---
PROGRESS NOTES Date of Service: DATE: 03/02/20 TIME: 16:50 Chief Complaint Chief Complaint Left knee swelling History of Present Illness History of Present Illness Patient still reports some knee pain. Patient states he has a history of gout that presented similarly to his current knee pain. Discussed lab results that showed no growth to date on synovial fluid culture. Vitals Vitals Vital Signs Date Time Temp Pulse Resp B/P (MAP) Pulse Ox O2 Delivery O2 Flow Rate FiO2 03/02/20 15:50 Room Air 03/02/20 15:00 97.9 94 20 130/80 (97) 96 97.9 Physical Exam General: Alert Heart: Regular rate, Normal S1, Normal S2 Lungs: Clear, Wheezing Extremities: No clubbing, No cyanosis, Other (Left knee swelling) Skin: No rashes, No breakdown Labs LABS Laboratory Tests Test 03/02/20 06:10 White Blood Count 9.1 x10^3/uL (4.0-11.0) Red Blood Count 4.60 x10^6/uL (4.30-5.70) Hemoglobin 13.5 g/dL (13.0-17.5) Hematocrit 39.1 % (39.0-53.0) Mean Corpuscular Volume 85 fL (79-100) Mean Corpuscular Hemoglobin 29 pg (25-35) Mean Corpuscular Hemoglobin Concent 34 g/dL (31-37) Red Cell Distribution Width 13.7 % (11.5-14.5) Platelet Count 247 x10^3/uL (140-400) Neutrophils (%) (Auto) 79 % (31-73) Lymphocytes (%) (Auto) 11 % (24-48) Monocytes (%) (Auto) 9 % (0-9) Eosinophils (%) (Auto) 0 % (0-3) Basophils (%) (Auto) 1 % (0-3) Neutrophils # (Auto) 7.2 x10^3/uL (1.8-7.7) Lymphocytes # (Auto) 1.0 x10^3/uL (1.0-4.8) Monocytes # (Auto) 0.8 x10^3/uL (0.0-1.1) Eosinophils # (Auto) 0.0 x10^3/uL (0.0-0.7) Basophils # (Auto) 0.0 x10^3/uL (0.0-0.2) Uric Acid 5.4 mg/dL (3.5-7.2) Review of Systems Review of Systems Left knee pain, swelling. Denies fever, denies nausea, denies vomiting, denies shortness of breath. Assessment and Plan Assessmemt and Plan Problems Medical Problems: (1) Bradycardia Status: Acute (2) Left ankle effusion Status: Acute (3) Vasovagal syncope Status: Acute Comment Review of Relevant I have reviewed the following items felicity (where applicable) has been applied. Labs Laboratory Tests Test 03/01/20 02:10 03/01/20 05:11 03/02/20 06:10 White Blood Count 10.1 x10^3/uL (4.0-11.0) 9.1 x10^3/uL (4.0-11.0) Red Blood Count 5.07 x10^6/uL (4.30-5.70) 4.60 x10^6/uL (4.30-5.70) Hemoglobin 15.1 g/dL (13.0-17.5) 13.5 g/dL (13.0-17.5) Hematocrit 43.2 % (39.0-53.0) 39.1 % (39.0-53.0) Mean Corpuscular Volume 85 fL (79-100) 85 fL (79-100) Mean Corpuscular Hemoglobin 30 pg (25-35) 29 pg (25-35) Mean Corpuscular Hemoglobin Concent 35 g/dL (31-37) 34 g/dL (31-37) Red Cell Distribution Width 13.6 % (11.5-14.5) 13.7 % (11.5-14.5) Platelet Count 253 x10^3/uL (140-400) 247 x10^3/uL (140-400) Neutrophils (%) (Auto) 72 % (31-73) 79 % (31-73) Lymphocytes (%) (Auto) 17 % (24-48) 11 % (24-48) Monocytes (%) (Auto) 9 % (0-9) 9 % (0-9) Eosinophils (%) (Auto) 1 % (0-3) 0 % (0-3) Basophils (%) (Auto) 0 % (0-3) 1 % (0-3) Neutrophils # (Auto) 7.3 x10^3/uL (1.8-7.7) 7.2 x10^3/uL (1.8-7.7) Lymphocytes # (Auto) 1.7 x10^3/uL (1.0-4.8) 1.0 x10^3/uL (1.0-4.8) Monocytes # (Auto) 0.9 x10^3/uL (0.0-1.1) 0.8 x10^3/uL (0.0-1.1) Eosinophils # (Auto) 0.1 x10^3/uL (0.0-0.7) 0.0 x10^3/uL (0.0-0.7) Basophils # (Auto) 0.0 x10^3/uL (0.0-0.2) 0.0 x10^3/uL (0.0-0.2) Sodium Level 139 mmol/L (136-145) Potassium Level 4.4 mmol/L (3.5-5.1) Chloride Level 102 mmol/L (98-107) Carbon Dioxide Level 29 mmol/L (21-32) Anion Gap 8 (6-14) Blood Urea Nitrogen 18 mg/dL (8-26) Creatinine 1.0 mg/dL (0.7-1.3) Estimated GFR (Cockcroft-Gault) 79.8 Glucose Level 113 mg/dL (70-99) Calcium Level 8.7 mg/dL (8.5-10.1) C-Reactive Protein, Quantitative 82.9 mg/L (0-3.3) Body Fluid Source Synovial Body Fluid Color Yellow Body Fluid Clarity Cloudy Body Fluid Nucleated Cells 9500 /cmm (Not Established) Body Fluid Mononuclear WBCs (%) 10 % Body Fluid Polymorphonuclear Cells 90 % Body Fluid Total RBCs Counted 4250 /cmm (Not Established) Uric Acid 5.4 mg/dL (3.5-7.2) Laboratory Tests Test 03/02/20 06:10 White Blood Count 9.1 x10^3/uL (4.0-11.0) Red Blood Count 4.60 x10^6/uL (4.30-5.70) Hemoglobin 13.5 g/dL (13.0-17.5) Hematocrit 39.1 % (39.0-53.0) Mean Corpuscular Volume 85 fL (79-100) Mean Corpuscular Hemoglobin 29 pg (25-35) Mean Corpuscular Hemoglobin Concent 34 g/dL (31-37) Red Cell Distribution Width 13.7 % (11.5-14.5) Platelet Count 247 x10^3/uL (140-400) Neutrophils (%) (Auto) 79 % (31-73) Lymphocytes (%) (Auto) 11 % (24-48) Monocytes (%) (Auto) 9 % (0-9) Eosinophils (%) (Auto) 0 % (0-3) Basophils (%) (Auto) 1 % (0-3) Neutrophils # (Auto) 7.2 x10^3/uL (1.8-7.7) Lymphocytes # (Auto) 1.0 x10^3/uL (1.0-4.8) Monocytes # (Auto) 0.8 x10^3/uL (0.0-1.1) Eosinophils # (Auto) 0.0 x10^3/uL (0.0-0.7) Basophils # (Auto) 0.0 x10^3/uL (0.0-0.2) Uric Acid 5.4 mg/dL (3.5-7.2) Microbiology 03/01/20 Gram Stain - Final, Resulted 03/01/20 Aerobic and Anaerobic Culture - Preliminary, Resulted Medications Current Medications Acetaminophen/ Hydrocodone Bitart (Lortab 5/325) 2 tab 1X ONCE PO Last adminis tered on 03/01/20at 02:46; Start 03/01/20 at 03:00; Stop 03/01/20 at 03:01; Status DC Cephalexin HCl (Keflex) 1,000 mg 1X ONCE PO Last administered on 03/01/20at 02:46; Start 03/01/20 at 03:00; Stop 03/01/20 at 03:01; Status DC Ketorolac Tromethamine (Toradol 30mg Vial) 30 mg 1X ONCE IM ; Start 03/01/20 at 04:00; Stop 03/01/20 at 04:01; Status DC Iohexol (Omnipaque 300 Mg/ml) 75 ml 1X ONCE IV Last administered on 03/01/20at 05:13; Start 03/01/20 at 05:00; Stop 03/01/20 at 05:01; Status DC Info (CONTRAST GIVEN -- Rx MONITORING) 1 each PRN DAILY PRN MC SEE COMMENTS; Start 03/01/20 at 04:30; Stop 03/03/20 at 04:29 Ketorolac Tromethamine (Toradol 15mg Vial) 15 mg 1X ONCE IVP Last administered on 03/01/20at 04:31; Start 03/01/20 at 05:00; Stop 03/01/20 at 05:01; Status DC Ketorolac Tromethamine (Toradol 15mg Vial) 15 mg STK-MED ONCE .ROUTE ; Start 03/01/20 at 04:29; Stop 03/01/20 at 04:29; Status DC Ondansetron HCl (Zofran) 4 mg STK-MED ONCE .ROUTE ; Start 03/01/20 at 06:05; Stop 03/01/20 at 06:05; Status DC Vancomycin HCl 2 gm/Sodium Chloride 500 ml @ 250 mls/hr 1X ONCE IV Last administered on 03/01/20at 06:23; Start 03/01/20 at 06:30; Stop 03/01/20 at 08:29; Status DC Ceftriaxone Sodium (Rocephin) 1 gm 1X ONCE IVP Last administered on 03/01/20at 06:23; Start 03/01/20 at 06:30; Stop 03/01/20 at 06:31; Status DC Ondansetron HCl (Zofran) 4 mg PRN Q8HRS PRN IV NAUSEA/VOMITING 1ST CHOICE; Start 03/01/20 at 06:30; Stop 03/01/20 at 15:53; Status DC Morphine Sulfate (Morphine Sulfate) 4 mg PRN Q2HR PRN IV SEVERE PAIN 7-10 Last administered on 03/02/20at 06:30; Start 03/01/20 at 06:30; Stop 03/02/20 at 06:29; Status DC Vancomycin HCl (Vanco Per Pharmacy) 1 each PRN DAILY PRN MC SEE COMMENTS Last administered on 03/01/20at 06:47; Start 03/01/20 at 06:30 Vancomycin HCl 1.25 gm/Sodium Chloride 250 ml @ 167 mls/hr Q12H IV Last administered on 03/02/20at 07:59; Start 03/01/20 at 19:00 Vancomycin HCl (Vancomycin Trough Level) 1 each 1X ONCE MC ; Start 03/02/20 at 18:30; Stop 03/02/20 at 18:31 Enoxaparin Sodium (Lovenox 40mg Syringe) 40 mg Q24H SQ Last administered on 03/01/20at 17:29; Start 03/01/20 at 17:00 Ondansetron HCl (Zofran) 4 mg PRN Q6HRS PRN IVP NAUSEA/VOMITING; Start 03/01/20 at 16:00 Sennosides (Senna) 17.2 mg PRN BID PRN PO CONSTIPATION; Start 03/01/20 at 16:00 Docusate Sodium (Colace) 100 mg PRN DAILY PRN PO HARD STOOLS; Start 03/01/20 at 16:00 Morphine Sulfate (Morphine Sulfate) 4 mg PRN Q2HR PRN IV PAIN Last administered on 03/02/20at 11:44; Start 03/02/20 at 11:00 Colchicine (Colcrys) 0.6 mg BID PO Last administered on 03/02/20at 13:20; Start 03/02/20 at 13:00 Lactobacillus Rhamnosus (Culturelle) 1 cap BID PO ; Start 03/02/20 at 21:00 Oxycodone/ Acetaminophen (Percocet 5/325) 1 tab PRN Q4HRS PRN PO MODERATE PAIN; Start 03/02/20 at 14:30 Oxycodone/ Acetaminophen (Percocet 5/325) 2 tab PRN Q4HRS PRN PO SEVERE PAIN Last administered on 03/02/20at 14:58; Start 03/02/20 at 14:45 Active Scripts Active Reported No Known Medications Prior To Admisstion (Info) Each 1 Each MC 1X Vitals/I & O Vital Sign - Last 24 Hours 03/01/20 03/01/20 03/01/20 03/01/20 17:30 19:15 20:00 20:14 Temp 98.0 98.0 Pulse 113 Resp 24 20 B/P (MAP) 141/82 (101) Pulse Ox 97 94 O2 Delivery Room Air Room Air Room Air 03/01/20 03/01/20 03/01/20 03/01/20 20:44 22:46 23:12 23:16 Temp 99.1 99.1 Pulse 110 Resp 18 B/P (MAP) 126/70 (88) Pulse Ox 94 O2 Delivery Room Air Room Air Room Air Room Air 03/02/20 03/02/20 03/02/20 03/02/20 03:11 06:30 07:00 10:20 Temp 98.5 98.0 98.5 98.0 Pulse 111 93 Resp 20 18 B/P (MAP) 130/74 (92) 148/89 (108) Pulse Ox 94 O2 Delivery Room Air Room Air Room Air Room Air 03/02/20 03/02/20 03/02/20 03/02/20 11:00 13:21 14:58 15:00 Temp 98.0 97.9 98.0 97.9 Pulse 96 94 Resp 20 20 B/P (MAP) 132/84 (100) 130/80 (97) Pulse Ox 96 96 O2 Delivery Room Air Room Air Room Air Room Air 03/02/20 15:50 O2 Delivery Room Air Intake and Output 03/01/20 03/01/20 03/02/20 15:00 23:00 07:00 Intake Total 500 ml 480 ml Balance 500 ml 480 ml Justicifation of Admission Dx: Justifications for Admission: Justification of Admission Dx: Yes BELKYS URIBE MD Mar 02, 2020 16:50
[2020-03-02] MEDS: ENOXAPARIN 40 MG/0.4 ML SYRINGE. SQ SCH (17:48)
[2020-03-02 19:00] VITALS: BP 118/67
[2020-03-02 19:11] LABS: VANC TR 4.7 mcg/mL (10.0-20.0)
[2020-03-02] MEDS: VANCOMYCIN PER PHARMACY MC PRN ×2 (19:37→19:45)
--- NOTE | 2020-03-02 19:42 | NUR ---
Pharmacy Vancomycin Dosing Note S:Consulted to monitor and dose vancomycin started 03/01/20. O:VIANNEY CAVAZOS is a 49 year old M with Empiric . Height: 5 feet, 9 inches Weight: 86.3 kg [place] Body Weight: 70.70 Adjusted Body Weight: 76.94 Dosing Weight: Actual Other Antibiotics: LABS: Last BUN: 18 Last Creatinine: 1 Creatinine Clearance: 98 mL/min Last WBC: 10.1 Last Procalcitonin: Tmax (past 24 hours): 99.1 Microbiology: NGTD I/O: 980/ Drug Levels: Last Trough level: 4.7 on 03/02/20 at 1835 Last dose given 03/02/20 at 0759 Vancomycin Dosing: Loading Dose: 2000 mg x1 Dosing Weight: Actual Target Trough: 15-20 A: Based on trough of 4.7: P: 1. Increase Vancomycin to 1500 mg IV q8h. 2. Follow up Trough level on 03/03/20 at 1930. 3. Pharmacy will continue to monitor, follow and adjust therapy as needed. Thom Darnell [facility], 03/02/201941
[2020-03-02] MEDS: LACTOBACILLUS RHAMNOSUS GG 1 CAPSULE. PO SCH (21:17)
[2020-03-02] MEDS: VANCOMYCIN 1.5 GM in IV NORMAL SALINE 500ML BAG 500 ML IV SCH (21:19)
[2020-03-02 23:00] VITALS: BP 90/63
[2020-03-03] MEDS: oxyCODONE/APAP 5/325 1 TAB TABLET PO PRN ×5 (02:29→21:16)
[2020-03-03 02:53] VITALS: BP 112/68
[2020-03-03] MEDS: VANCOMYCIN 1.5 GM in IV NORMAL SALINE 500ML BAG 500 ML IV SCH ×3 (04:54→21:19)
[2020-03-03 06:36] LABS: BASO % 0 % (0-3); EOS # 0.1 x10^3/uL (0.0-0.7); EOS % 1 % (0-3); HEMATOCRIT 35.6 % (39.0-53.0); HEMOGLOBIN 12.7 g/dL (13.0-17.5); LYMPH # 1.5 x10^3/uL (1.0-4.8); LYMPH % 17 % (24-48); MEAN CORPUSCULAR HEMOGLOBIN 30 pg (25-35); MEAN CORPUSCULAR HGB CONC 36 g/dL (31-37); MEAN CORPUSCULAR VOLUME 84 fL (79-100); MONO % 11 % (0-9); NEUT # 6.3 x10^3/uL (1.8-7.7); NEUT % 71 % (31-73); PLATELET COUNT 250 x10^3/uL (140-400); RED BLOOD COUNT 4.22 x10^6/uL (4.30-5.70); RED CELL DISTRIBUTION WIDTH 13.4 % (11.5-14.5); WHITE BLOOD COUNT 8.9 x10^3/uL (4.0-11.0)
[2020-03-03 06:49] LABS: CALCIUM 8.5 mg/dL (8.5-10.1); CREATININE 0.7 mg/dL (0.7-1.3); GFR 120.4
[2020-03-03 07:45] VITALS: BP 115/80
[2020-03-03] MEDS: LACTOBACILLUS RHAMNOSUS GG 1 CAPSULE. PO SCH ×2 (08:35→21:16)
[2020-03-03] MEDS: COLCHICINE 0.6 MG TABLET PO SCH ×2 (08:35→21:15)
--- NOTE | 2020-03-03 09:29 | NUR ---
SW following. Discussed with RN, PT recommending home. Pt has hx of gout. RN advised no SW needs. SW will continue to follow, should any discharge needs arise.
[2020-03-03 11:00] VITALS: BP 116/74
--- NOTE | 2020-03-03 14:59 | PDOC ---
PROGRESS NOTES Date of Service: DATE: 03/03/20 TIME: 14:56 Chief Complaint Chief Complaint Left knee swelling History of Present Illness History of Present Illness Patient evaluated at bedside. Discussed negative fluid culture results. He states his left knee effusion is improving, but seems to be developing right knee effusion. Discussed with patient that I believe his symptoms may be due to gout, given negative Gram stain and negative culture today. Vitals Vitals Vital Signs Date Time Temp Pulse Resp B/P (MAP) Pulse Ox O2 Delivery O2 Flow Rate FiO2 03/03/20 12:27 Room Air 03/03/20 11:00 98.9 85 20 116/74 (88) 94 98.9 Physical Exam General: Alert Heart: Regular rate, Normal S1, Normal S2 Lungs: Clear, Wheezing Extremities: No clubbing, No cyanosis, Other (Left knee swelling) Skin: No rashes, No breakdown Labs LABS Laboratory Tests Test 03/02/20 18:25 03/03/20 05:15 Vancomycin Level Trough 4.7 mcg/mL (10.0-20.0) Vancomycin Last Dose Date Unk Vancomycin Last Dose Time Unk White Blood Count 8.9 x10^3/uL (4.0-11.0) Red Blood Count 4.22 x10^6/uL (4.30-5.70) Hemoglobin 12.7 g/dL (13.0-17.5) Hematocrit 35.6 % (39.0-53.0) Mean Corpuscular Volume 84 fL (79-100) Mean Corpuscular Hemoglobin 30 pg (25-35) Mean Corpuscular Hemoglobin Concent 36 g/dL (31-37) Red Cell Distribution Width 13.4 % (11.5-14.5) Platelet Count 250 x10^3/uL (140-400) Neutrophils (%) (Auto) 71 % (31-73) Lymphocytes (%) (Auto) 17 % (24-48) Monocytes (%) (Auto) 11 % (0-9) Eosinophils (%) (Auto) 1 % (0-3) Basophils (%) (Auto) 0 % (0-3) Neutrophils # (Auto) 6.3 x10^3/uL (1.8-7.7) Lymphocytes # (Auto) 1.5 x10^3/uL (1.0-4.8) Monocytes # (Auto) 1.0 x10^3/uL (0.0-1.1) Eosinophils # (Auto) 0.1 x10^3/uL (0.0-0.7) Basophils # (Auto) 0.0 x10^3/uL (0.0-0.2) Sodium Level 137 mmol/L (136-145) Potassium Level 4.0 mmol/L (3.5-5.1) Chloride Level 102 mmol/L (98-107) Carbon Dioxide Level 28 mmol/L (21-32) Anion Gap 7 (6-14) Blood Urea Nitrogen 9 mg/dL (8-26) Creatinine 0.7 mg/dL (0.7-1.3) Estimated GFR (Cockcroft-Gault) 120.4 Glucose Level 110 mg/dL (70-99) Calcium Level 8.5 mg/dL (8.5-10.1) Review of Systems Review of Systems Left knee swelling. Denies fever, denies nausea, denies vomiting, denies chills. Assessment and Plan Assessmemt and Plan Problems Medical Problems: (1) Bradycardia Status: Acute (2) Left ankle effusion Status: Acute (3) Vasovagal syncope Status: Acute Plan: Negative Gram stain, negative growth on aerobic and anaerobic cultures to date. Suspect patient's symptoms are likely due to gout. Discussed with patient that no cultures grow by tomorrow will initiate prednisone and allopurinol for treatment of gout. Total time spent discussion with patient and family was greater than 35 minutes, and greater than 50% of this was spent counseling and coordinating care. Comment Review of Relevant I have reviewed the following items felicity (where applicable) has been applied. Labs Laboratory Tests Test 03/02/20 06:10 03/02/20 18:25 03/03/20 05:15 White Blood Count 9.1 x10^3/uL (4.0-11.0) 8.9 x10^3/uL (4.0-11.0) Red Blood Count 4.60 x10^6/uL (4.30-5.70) 4.22 x10^6/uL (4.30-5.70) Hemoglobin 13.5 g/dL (13.0-17.5) 12.7 g/dL (13.0-17.5) Hematocrit 39.1 % (39.0-53.0) 35.6 % (39.0-53.0) Mean Corpuscular Volume 85 fL (79-100) 84 fL (79-100) Mean Corpuscular Hemoglobin 29 pg (25-35) 30 pg (25-35) Mean Corpuscular Hemoglobin Concent 34 g/dL (31-37) 36 g/dL (31-37) Red Cell Distribution Width 13.7 % (11.5-14.5) 13.4 % (11.5-14.5) Platelet Count 247 x10^3/uL (140-400) 250 x10^3/uL (140-400) Neutrophils (%) (Auto) 79 % (31-73) 71 % (31-73) Lymphocytes (%) (Auto) 11 % (24-48) 17 % (24-48) Monocytes (%) (Auto) 9 % (0-9) 11 % (0-9) Eosinophils (%) (Auto) 0 % (0-3) 1 % (0-3) Basophils (%) (Auto) 1 % (0-3) 0 % (0-3) Neutrophils # (Auto) 7.2 x10^3/uL (1.8-7.7) 6.3 x10^3/uL (1.8-7.7) Lymphocytes # (Auto) 1.0 x10^3/uL (1.0-4.8) 1.5 x10^3/uL (1.0-4.8) Monocytes # (Auto) 0.8 x10^3/uL (0.0-1.1) 1.0 x10^3/uL (0.0-1.1) Eosinophils # (Auto) 0.0 x10^3/uL (0.0-0.7) 0.1 x10^3/uL (0.0-0.7) Basophils # (Auto) 0.0 x10^3/uL (0.0-0.2) 0.0 x10^3/uL (0.0-0.2) Uric Acid 5.4 mg/dL (3.5-7.2) Vancomycin Level Trough 4.7 mcg/mL (10.0-20.0) Vancomycin Last Dose Date Unk Vancomycin Last Dose Time Unk Sodium Level 137 mmol/L (136-145) Potassium Level 4.0 mmol/L (3.5-5.1) Chloride Level 102 mmol/L (98-107) Carbon Dioxide Level 28 mmol/L (21-32) Anion Gap 7 (6-14) Blood Urea Nitrogen 9 mg/dL (8-26) Creatinine 0.7 mg/dL (0.7-1.3) Estimated GFR (Cockcroft-Gault) 120.4 Glucose Level 110 mg/dL (70-99) Calcium Level 8.5 mg/dL (8.5-10.1) Laboratory Tests Test 03/02/20 18:25 03/03/20 05:15 Vancomycin Level Trough 4.7 mcg/mL (10.0-20.0) Vancomycin Last Dose Date Unk Vancomycin Last Dose Time Unk White Blood Count 8.9 x10^3/uL (4.0-11.0) Red Blood Count 4.22 x10^6/uL (4.30-5.70) Hemoglobin 12.7 g/dL (13.0-17.5) Hematocrit 35.6 % (39.0-53.0) Mean Corpuscular Volume 84 fL (79-100) Mean Corpuscular Hemoglobin 30 pg (25-35) Mean Corpuscular Hemoglobin Concent 36 g/dL (31-37) Red Cell Distribution Width 13.4 % (11.5-14.5) Platelet Count 250 x10^3/uL (140-400) Neutrophils (%) (Auto) 71 % (31-73) Lymphocytes (%) (Auto) 17 % (24-48) Monocytes (%) (Auto) 11 % (0-9) Eosinophils (%) (Auto) 1 % (0-3) Basophils (%) (Auto) 0 % (0-3) Neutrophils # (Auto) 6.3 x10^3/uL (1.8-7.7) Lymphocytes # (Auto) 1.5 x10^3/uL (1.0-4.8) Monocytes # (Auto) 1.0 x10^3/uL (0.0-1.1) Eosinophils # (Auto) 0.1 x10^3/uL (0.0-0.7) Basophils # (Auto) 0.0 x10^3/uL (0.0-0.2) Sodium Level 137 mmol/L (136-145) Potassium Level 4.0 mmol/L (3.5-5.1) Chloride Level 102 mmol/L (98-107) Carbon Dioxide Level 28 mmol/L (21-32) Anion Gap 7 (6-14) Blood Urea Nitrogen 9 mg/dL (8-26) Creatinine 0.7 mg/dL (0.7-1.3) Estimated GFR (Cockcroft-Gault) 120.4 Glucose Level 110 mg/dL (70-99) Calcium Level 8.5 mg/dL (8.5-10.1) Microbiology 03/01/20 Gram Stain - Final, Resulted 03/01/20 Aerobic and Anaerobic Culture - Preliminary, Resulted Medications Current Medications Acetaminophen/ Hydrocodone Bitart (Lortab 5/325) 2 tab 1X ONCE PO Last administered on 03/01/20at 02:46; Start 03/01/20 at 03:00; Stop 03/01/20 at 03:01; Status DC Cephalexin HCl (Keflex) 1,000 mg 1X ONCE PO Last administered on 03/01/20at 02:46; Start 03/01/20 at 03:00; Stop 03/01/20 at 03:01; Status DC Ketorolac Tromethamine (Toradol 30mg Vial) 30 mg 1X ONCE IM ; Start 03/01/20 at 04:00; Stop 03/01/20 at 04:01; Status DC Iohexol (Omnipaque 300 Mg/ml) 75 ml 1X ONCE IV Last administered on 03/01/20at 05:13; Start 03/01/20 at 05:00; Stop 03/01/20 at 05:01; Status DC Info (CONTRAST GIVEN -- Rx MONITORING) 1 each PRN DAILY PRN MC SEE COMMENTS; Start 03/01/20 at 04:30; Stop 03/03/20 at 04:29; Status DC Ketorolac Tromethamine (Toradol 15mg Vial) 15 mg 1X ONCE IVP Last administered on 03/01/20at 04:31; Start 03/01/20 at 05:00; Stop 03/01/20 at 05:01; Status DC Ketorolac Tromethamine (Toradol 15mg Vial) 15 mg STK-MED ONCE .ROUTE ; Start 03/01/20 at 04:29; Stop 03/01/20 at 04:29; Status DC Ondansetron HCl (Zofran) 4 mg STK-MED ONCE .ROUTE ; Start 03/01/20 at 06:05; Stop 03/01/20 at 06:05; Status DC Vancomycin HCl 2 gm/Sodium Chloride 500 ml @ 250 mls/hr 1X ONCE IV Last administered on 03/01/20at 06:23; Start 03/01/20 at 06:30; Stop 03/01/20 at 08:29; Status DC Ceftriaxone Sodium (Rocephin) 1 gm 1X ONCE IVP Last administered on 03/01/20at 06:23; Start 03/01/20 at 06:30; Stop 03/01/20 at 06:31; Status DC Ondansetron HCl (Zofran) 4 mg PRN Q8HRS PRN IV NAUSEA/VOMITING 1ST CHOICE; Sta rt 03/01/20 at 06:30; Stop 03/01/20 at 15:53; Status DC Morphine Sulfate (Morphine Sulfate) 4 mg PRN Q2HR PRN IV SEVERE PAIN 7-10 Last administered on 03/02/20at 06:30; Start 03/01/20 at 06:30; Stop 03/02/20 at 06:29; Status DC Vancomycin HCl (Vanco Per Pharmacy) 1 each PRN DAILY PRN MC SEE COMMENTS Last administered on 03/02/20at 19:45; Start 03/01/20 at 06:30 Vancomycin HCl 1.25 gm/Sodium Chloride 250 ml @ 167 mls/hr Q12H IV Last administered on 03/02/20at 07:59; Start 03/01/20 at 19:00; Stop 03/02/20 at 19:29; Status DC Vancomycin HCl (Vancomycin Trough Level) 1 each 1X ONCE MC Last administered on 03/02/20at 18:30; Start 03/02/20 at 18:30; Stop 03/02/20 at 18:31; Status DC Enoxaparin Sodium (Lovenox 40mg Syringe) 40 mg Q24H SQ Last administered on 03/02/20at 17:48; Start 03/01/20 at 17:00 Ondansetron HCl (Zofran) 4 mg PRN Q6HRS PRN IVP NAUSEA/VOMITING; Start 03/01/20 at 16:00 Sennosides (Senna) 17.2 mg PRN BID PRN PO CONSTIPATION; Start 03/01/20 at 16:00 Docusate Sodium (Colace) 100 mg PRN DAILY PRN PO HARD STOOLS; Start 03/01/20 at 16:00 Morphine Sulfate (Morphine Sulfate) 4 mg PRN Q2HR PRN IV PAIN Last administered on 03/02/20at 11:44; Start 03/02/20 at 11:00 Colchicine (Colcrys) 0.6 mg BID PO Last administered on 03/03/20at 08:35; Start 03/02/20 at 13:00 Lactobacillus Rhamnosus (Culturelle) 1 cap BID PO Last administered on 03/03/20at 08:35; Start 03/02/20 at 21:00 Oxycodone/ Acetaminophen (Percocet 5/325) 1 tab PRN Q4HRS PRN PO MODERATE PAIN; Start 03/02/20 at 14:30 Oxycodone/ Acetaminophen (Percocet 5/325) 2 tab PRN Q4HRS PRN PO SEVERE PAIN Last administered on 03/03/20at 12:27; Start 03/02/20 at 14:45 Vancomycin HCl 1.5 gm/Sodium Chloride 500 ml @ 250 mls/hr Q8H IV Last administered on 03/03/20at 12:17; Start 03/02/20 at 20:00 Vancomycin HCl (Vancomycin Trough Level) 1 each 1X ONCE MC ; Start 03/03/20 at 19:30; Stop 03/03/20 at 19:31 Active Scripts Active Reported No Known Medications Prior To Admisstion (Info) Each 1 Each MC 1X Vitals/I & O Vital Sign - Last 24 Hours 03/02/20 03/02/20 03/02/20 03/02/20 14:58 15:00 15:50 19:00 Temp 97.9 99.6 97.9 99.6 Pulse 94 99 Resp 20 18 B/P (MAP) 130/80 (97) 118/67 (84) Pulse Ox 96 95 O2 Delivery Room Air Room Air Room Air Room Air 03/02/20 03/02/20 03/03/20 03/03/20 19:05 23:00 02:29 02:31 Temp 99.7 100.4 99.7 100.4 Pulse 92 Resp 18 24 B/P (MAP) 90/63 (72) Pulse Ox 93 O2 Delivery Room Air Room Air Room Air 03/03/20 03/03/20 03/03/20 03/03/20 02:53 03:30 07:45 08:10 Temp 100.8 98.1 100.8 98.1 Pulse 100 88 Resp 18 16 18 B/P (MAP) 112/68 (83) 115/80 (92) Pulse Ox 93 96 O2 Delivery Room Air Room Air Room Air 03/03/20 03/03/20 03/03/20 03/03/20 08:35 09:35 11:00 12:27 Temp 98.9 98.9 Pulse 85 Resp 20 B/P (MAP) 116/74 (88) Pulse Ox 94 O2 Delivery Room Air Room Air Room Air Room Air Intake and Output 03/02/20 03/02/20 03/03/20 15:00 23:00 07:00 Output Total 0 ml Balance 0 ml Justicifation of Admission Dx: Justifications for Admission: Justification of Admission Dx: Yes BELKYS URIBE MD Mar 03, 2020 14:59
[2020-03-03 15:00] VITALS: BP 125/62
[2020-03-03] MEDS: ENOXAPARIN 40 MG/0.4 ML SYRINGE. SQ SCH (17:08)
[2020-03-03 19:00] VITALS: BP 140/84
[2020-03-03 20:04] LABS: VANC TR 13.9 mcg/mL (10.0-20.0)
[2020-03-03] MEDS: VANCOMYCIN PER PHARMACY MC PRN (21:17)
--- NOTE | 2020-03-03 21:17 | NUR ---
Pharmacy Vancomycin Dosing Note S:Consulted to monitor and dose vancomycin started 03/01/20. O:VIANNEY CAVAZOS is a 49 year old M with Empiric . Height: 5 feet, 9 inches Weight: 86.3 kg [place] Body Weight: 70.70 Adjusted Body Weight: 76.94 Dosing Weight: Actual Other Antibiotics: LABS: Last BUN: 9 Last Creatinine: 0.7 Creatinine Clearance: 140 mL/min Last WBC: 8.9 Last Procalcitonin: Tmax (past 24 hours): 100.8 Microbiology: NGTD I/O: 980/ Drug Levels: Last Trough level: 13.9 on 03/03/20 at 1935 Last dose given 03/02/20 at 0759 Vancomycin Dosing: Loading Dose: 2000 mg x1 Dosing Weight: Actual Target Trough: 15-20 A: Based on: TROUGH=13.9 P: 1. Continue Vancomycin 1500 mg IV q8h 2. Follow up Trough level on 03/03/20 at 1930 3. Pharmacy will continue to monitor, follow and adjust therapy as needed. CECIL SORTO, [facility], 03/03/20 [id number]
[2020-03-03 23:00] VITALS: BP 117/74
[2020-03-04] MEDS: oxyCODONE/APAP 5/325 1 TAB TABLET PO PRN ×3 (02:46→13:02)
[2020-03-04 03:00] VITALS: BP 129/86
[2020-03-04 04:44] LABS: BASO % 1 % (0-3); EOS # 0.2 x10^3/uL (0.0-0.7); EOS % 3 % (0-3); HEMATOCRIT 33.8 % (39.0-53.0); HEMOGLOBIN 11.7 g/dL (13.0-17.5); LYMPH # 1.6 x10^3/uL (1.0-4.8); LYMPH % 26 % (24-48); MEAN CORPUSCULAR HEMOGLOBIN 29 pg (25-35); MEAN CORPUSCULAR HGB CONC 35 g/dL (31-37); MEAN CORPUSCULAR VOLUME 85 fL (79-100); MONO # 0.6 x10^3/uL (0.0-1.1); MONO % 10 % (0-9); NEUT # 3.7 x10^3/uL (1.8-7.7); NEUT % 60 % (31-73); PLATELET COUNT 279 x10^3/uL (140-400); RED BLOOD COUNT 3.97 x10^6/uL (4.30-5.70); RED CELL DISTRIBUTION WIDTH 13.3 % (11.5-14.5); WHITE BLOOD COUNT 6.2 x10^3/uL (4.0-11.0)
[2020-03-04 04:56] LABS: CALCIUM 8.8 mg/dL (8.5-10.1); CREATININE 0.8 mg/dL (0.7-1.3); GFR 103.2; POTASSIUM 3.8 mmol/L (3.5-5.1)
[2020-03-04] MEDS: VANCOMYCIN 1.5 GM in IV NORMAL SALINE 500ML BAG 500 ML IV SCH ×2 (05:26→12:00)
[2020-03-04 07:00] VITALS: BP 116/84
[2020-03-04] MEDS: COLCHICINE 0.6 MG TABLET PO SCH (07:58)
[2020-03-04] MEDS: LACTOBACILLUS RHAMNOSUS GG 1 CAPSULE. PO SCH (07:58)
--- NOTE | 2020-03-04 08:17 | PDOC ---
ORTHO PROGRESS NOTES DATE: 03/04/20 TIME: 08:14 Subjective Patient sitting up at bedside eating breakfast stating he is feeling better. Procedure Possible gout Vitals Vital Signs Date Time Temp Pulse Resp B/P (MAP) Pulse Ox O2 Delivery O2 Flow Rate FiO2 03/04/20 07:58 Room Air 03/04/20 07:00 97.8 72 18 116/84 (95) 91 97.8 Labs Laboratory Tests Test 03/02/20 18:25 03/03/20 05:15 03/03/20 19:35 03/04/20 03:51 Vancomycin Level Trough 4.7 mcg/mL (10.0-20.0) 13.9 mcg/mL (10.0-20.0) Vancomycin Last Dose Date Unk Unk Vancomycin Last Dose Time Unk Unk White Blood Count 8.9 x10^3/uL (4.0-11.0) 6.2 x10^3/uL (4.0-11.0) Red Blood Count 4.22 x10^6/uL (4.30-5.70) 3.97 x10^6/uL (4.30-5.70) Hemoglobin 12.7 g/dL (13.0-17.5) 11.7 g/dL (13.0-17.5) Hematocrit 35.6 % (39.0-53.0) 33.8 % (39.0-53.0) Mean Corpuscular Volume 84 fL (79-100) 85 fL (79-100) Mean Corpuscular Hemoglobin 30 pg (25-35) 29 pg (25-35) Mean Corpuscular Hemoglobin Concent 36 g/dL (31-37) 35 g/dL (31-37) Red Cell Distribution Width 13.4 % (11.5-14.5) 13.3 % (11.5-14.5) Platelet Count 250 x10^3/uL (140-400) 279 x10^3/uL (140-400) Neutrophils (%) (Auto) 71 % (31-73) 60 % (31-73) Lymphocytes (%) (Auto) 17 % (24-48) 26 % (24-48) Monocytes (%) (Auto) 11 % (0-9) 10 % (0-9) Eosinophils (%) (Auto) 1 % (0-3) 3 % (0-3) Basophils (%) (Auto) 0 % (0-3) 1 % (0-3) Neutrophils # (Auto) 6.3 x10^3/uL (1.8-7.7) 3.7 x10^3/uL (1.8-7.7) Lymphocytes # (Auto) 1.5 x10^3/uL (1.0-4.8) 1.6 x10^3/uL (1.0-4.8) Monocytes # (Auto) 1.0 x10^3/uL (0.0-1.1) 0.6 x10^3/uL (0.0-1.1) Eosinophils # (Auto) 0.1 x10^3/uL (0.0-0.7) 0.2 x10^3/uL (0.0-0.7) Basophils # (Auto) 0.0 x10^3/uL (0.0-0.2) 0.0 x10^3/uL (0.0-0.2) Sodium Level 137 mmol/L (136-145) 139 mmol/L (136-145) Potassium Level 4.0 mmol/L (3.5-5.1) 3.8 mmol/L (3.5-5.1) Chloride Level 102 mmol/L (98-107) 103 mmol/L (98-107) Carbon Dioxide Level 28 mmol/L (21-32) 28 mmol/L (21-32) Anion Gap 7 (6-14) 8 (6-14) Blood Urea Nitrogen 9 mg/dL (8-26) 9 mg/dL (8-26) Creatinine 0.7 mg/dL (0.7-1.3) 0.8 mg/dL (0.7-1.3) Estimated GFR (Cockcroft-Gault) 120.4 103.2 Glucose Level 110 mg/dL (70-99) 107 mg/dL (70-99) Calcium Level 8.5 mg/dL (8.5-10.1) 8.8 mg/dL (8.5-10.1) Laboratory Tests Test 03/03/20 19:35 03/04/20 03:51 Vancomycin Level Trough 13.9 mcg/mL (10.0-20.0) Vancomycin Last Dose Date Unk Vancomycin Last Dose Time Unk White Blood Count 6.2 x10^3/uL (4.0-11.0) Red Blood Count 3.97 x10^6/uL (4.30-5.70) Hemoglobin 11.7 g/dL (13.0-17.5) Hematocrit 33.8 % (39.0-53.0) Mean Corpuscular Volume 85 fL (79-100) Mean Corpuscular Hemoglobin 29 pg (25-35) Mean Corpuscular Hemoglobin Concent 35 g/dL (31-37) Red Cell Distribution Width 13.3 % (11.5-14.5) Platelet Count 279 x10^3/uL (140-400) Neutrophils (%) (Auto) 60 % (31-73) Lymphocytes (%) (Auto) 26 % (24-48) Monocytes (%) (Auto) 10 % (0-9) Eosinophils (%) (Auto) 3 % (0-3) Basophils (%) (Auto) 1 % (0-3) Neutrophils # (Auto) 3.7 x10^3/uL (1.8-7.7) Lymphocytes # (Auto) 1.6 x10^3/uL (1.0-4.8) Monocytes # (Auto) 0.6 x10^3/uL (0.0-1.1) Eosinophils # (Auto) 0.2 x10^3/uL (0.0-0.7) Basophils # (Auto) 0.0 x10^3/uL (0.0-0.2) Sodium Level 139 mmol/L (136-145) Potassium Level 3.8 mmol/L (3.5-5.1) Chloride Level 103 mmol/L (98-107) Carbon Dioxide Level 28 mmol/L (21-32) Anion Gap 8 (6-14) Blood Urea Nitrogen 9 mg/dL (8-26) Creatinine 0.8 mg/dL (0.7-1.3) Estimated GFR (Cockcroft-Gault) 103.2 Glucose Level 107 mg/dL (70-99) Calcium Level 8.8 mg/dL (8.5-10.1) Notes Awake and alert Assessment and Plan Patient called family member to interpret and states that he is feeling better at this time. Swelling is decreasing in the left knee and the ankle. No drainage at this time. Per Dr. Lott's note he will possibly start him on prednisone and allopurinol We will follow as necessary TAWNY CASILLAS APRN Mar 04, 2020 08:17
[2020-03-04] MEDS: VANCOMYCIN PER PHARMACY MC PRN (09:25)
--- NOTE | 2020-03-04 09:42 | NUR ---
SW following. Discussed with RN, pt from home, room air, regular diet. PT recommending home. Anticipate discharge home today. SW will continue to follow.
[2020-03-04 11:00] VITALS: BP 121/72
--- NOTE | 2020-03-04 12:33 | PDOC ---
PROGRESS NOTES Date of Service: DATE: 03/04/20 TIME: 12:31 Chief Complaint Chief Complaint Left knee swelling History of Present Illness History of Present Illness Patient evaluated at bedside. Discussed negative fluid culture results. He notes resolving effusion of his left knee. He is comfortable discharging, but is requesting pain medication and walker. Recommended close PCP follow-up. Discussed new medications. Vitals Vitals Vital Signs Date Time Temp Pulse Resp B/P (MAP) Pulse Ox O2 Delivery O2 Flow Rate FiO2 03/04/20 11:00 97.8 75 18 121/72 (88) 96 Room Air 97.8 Physical Exam General: Alert Heart: Regular rate, Normal S1, Normal S2 Lungs: Clear, Wheezing Extremities: No clubbing, No cyanosis, Other (Left knee swelling) Skin: No rashes, No breakdown Labs LABS Laboratory Tests Test 03/03/20 19:35 03/04/20 03:51 Vancomycin Level Trough 13.9 mcg/mL (10.0-20.0) Vancomycin Last Dose Date Unk Vancomycin Last Dose Time Unk White Blood Count 6.2 x10^3/uL (4.0-11.0) Red Blood Count 3.97 x10^6/uL (4.30-5.70) Hemoglobin 11.7 g/dL (13.0-17.5) Hematocrit 33.8 % (39.0-53.0) Mean Corpuscular Volume 85 fL (79-100) Mean Corpuscular Hemoglobin 29 pg (25-35) Mean Corpuscular Hemoglobin Concent 35 g/dL (31-37) Red Cell Distribution Width 13.3 % (11.5-14.5) Platelet Count 279 x10^3/uL (140-400) Neutrophils (%) (Auto) 60 % (31-73) Lymphocytes (%) (Auto) 26 % (24-48) Monocytes (%) (Auto) 10 % (0-9) Eosinophils (%) (Auto) 3 % (0-3) Basophils (%) (Auto) 1 % (0-3) Neutrophils # (Auto) 3.7 x10^3/uL (1.8-7.7) Lymphocytes # (Auto) 1.6 x10^3/uL (1.0-4.8) Monocytes # (Auto) 0.6 x10^3/uL (0.0-1.1) Eosinophils # (Auto) 0.2 x10^3/uL (0.0-0.7) Basophils # (Auto) 0.0 x10^3/uL (0.0-0.2) Sodium Level 139 mmol/L (136-145) Potassium Level 3.8 mmol/L (3.5-5.1) Chloride Level 103 mmol/L (98-107) Carbon Dioxide Level 28 mmol/L (21-32) Anion Gap 8 (6-14) Blood Urea Nitrogen 9 mg/dL (8-26) Creatinine 0.8 mg/dL (0.7-1.3) Estimated GFR (Cockcroft-Gault) 103.2 Glucose Level 107 mg/dL (70-99) Calcium Level 8.8 mg/dL (8.5-10.1) Review of Systems Review of Systems Knee pain, knee swelling. Denies fever, denies chills, denies chest pain. Assessment and Plan Assessmemt and Plan Problems Medical Problems: (1) Bradycardia Status: Acute (2) Left ankle effusion Status: Acute (3) Vasovagal syncope Status: Acute Plan: We will discharge patient with prednisone 30 mg daily for 5 days, allopurinol 100 mg daily, and Percocet 53 25 as needed pain. Discussed close follow-up with his PCP for titration of allopurinol and management of gout. Greater than 35 minutes was spent on discharge management of this patient. Comment Review of Relevant I have reviewed the following items felicity (where applicable) has been applied. Labs Laboratory Tests Test 03/02/20 18:25 03/03/20 05:15 03/03/20 19:35 03/04/20 03:51 Vancomycin Level Trough 4.7 mcg/mL (10.0-20.0) 13.9 mcg/mL (10.0-20.0) Vancomycin Last Dose Date Unk Unk Vancomycin Last Dose Time Unk Unk White Blood Count 8.9 x10^3/uL (4.0-11.0) 6.2 x10^3/uL (4.0-11.0) Red Blood Count 4.22 x10^6/uL (4.30-5.70) 3.97 x10^6/uL (4.30-5.70) Hemoglobin 12.7 g/dL (13.0-17.5) 11.7 g/dL (13.0-17.5) Hematocrit 35.6 % (39.0-53.0) 33.8 % (39.0-53.0) Mean Corpuscular Volume 84 fL (79-100) 85 fL (79-100) Mean Corpuscular Hemoglobin 30 pg (25-35) 29 pg (25-35) Mean Corpuscular Hemoglobin Concent 36 g/dL (31-37) 35 g/dL (31-37) Red Cell Distribution Width 13.4 % (11.5-14.5) 13.3 % (11.5-14.5) Platelet Count 250 x10^3/uL (140-400) 279 x10^3/uL (140-400) Neutrophils (%) (Auto) 71 % (31-73) 60 % (31-73) Lymphocytes (%) (Auto) 17 % (24-48) 26 % (24-48) Monocytes (%) (Auto) 11 % (0-9) 10 % (0-9) Eosinophils (%) (Auto) 1 % (0-3) 3 % (0-3) Basophils (%) (Auto) 0 % (0-3) 1 % (0-3) Neutrophils # (Auto) 6.3 x10^3/uL (1.8-7.7) 3.7 x10^3/uL (1.8-7.7) Lymphocytes # (Auto) 1.5 x10^3/uL (1.0-4.8) 1.6 x10^3/uL (1.0-4.8) Monocytes # (Auto) 1.0 x10^3/uL (0.0-1.1) 0.6 x10^3/uL (0.0-1.1) Eosinophils # (Auto) 0.1 x10^3/uL (0.0-0.7) 0.2 x10^3/uL (0.0-0.7) Basophils # (Auto) 0.0 x10^3/uL (0.0-0.2) 0.0 x10^3/uL (0.0-0.2) Sodium Level 137 mmol/L (136-145) 139 mmol/L (136-145) Potassium Level 4.0 mmol/L (3.5-5.1) 3.8 mmol/L (3.5-5.1) Chloride Level 102 mmol/L (98-107) 103 mmol/L (98-107) Carbon Dioxide Level 28 mmol/L (21-32) 28 mmol/L (21-32) Anion Gap 7 (6-14) 8 (6-14) Blood Urea Nitrogen 9 mg/dL (8-26) 9 mg/dL (8-26) Creatinine 0.7 mg/dL (0.7-1.3) 0.8 mg/dL (0.7-1.3) Estimated GFR (Cockcroft-Gault) 120.4 103.2 Glucose Level 110 mg/dL (70-99) 107 mg/dL (70-99) Calcium Level 8.5 mg/dL (8.5-10.1) 8.8 mg/dL (8.5-10.1) Laboratory Tests Test 03/03/20 19:35 03/04/20 03:51 Vancomycin Level Trough 13.9 mcg/mL (10.0-20.0) Vancomycin Last Dose Date Unk Vancomycin Last Dose Time Unk White Blood Count 6.2 x10^3/uL (4.0-11.0) Red Blood Count 3.97 x10^6/uL (4.30-5.70) Hemoglobin 11.7 g/dL (13.0-17.5) Hematocrit 33.8 % (39.0-53.0) Mean Corpuscular Volume 85 fL (79-100) Mean Corpuscular Hemoglobin 29 pg (25-35) Mean Corpuscular Hemoglobin Concent 35 g/dL (31-37) Red Cell Distribution Width 13.3 % (11.5-14.5) Platelet Count 279 x10^3/uL (140-400) Neutrophils (%) (Auto) 60 % (31-73) Lymphocytes (%) (Auto) 26 % (24-48) Monocytes (%) (Auto) 10 % (0-9) Eosinophils (%) (Auto) 3 % (0-3) Basophils (%) (Auto) 1 % (0-3) Neutrophils # (Auto) 3.7 x10^3/uL (1.8-7.7) Lymphocytes # (Auto) 1.6 x10^3/uL (1.0-4.8) Monocytes # (Auto) 0.6 x10^3/uL (0.0-1.1) Eosinophils # (Auto) 0.2 x10^3/uL (0.0-0.7) Basophils # (Auto) 0.0 x10^3/uL (0.0-0.2) Sodium Level 139 mmol/L (136-145) Potassium Level 3.8 mmol/L (3.5-5.1) Chloride Level 103 mmol/L (98-107) Carbon Dioxide Level 28 mmol/L (21-32) Anion Gap 8 (6-14) Blood Urea Nitrogen 9 mg/dL (8-26) Creatinine 0.8 mg/dL (0.7-1.3) Estimated GFR (Cockcroft-Gault) 103.2 Glucose Level 107 mg/dL (70-99) Calcium Level 8.8 mg/dL (8.5-10.1) Microbiology 03/01/20 Gram Stain - Final, Resulted 03/01/20 Aerobic and Anaerobic Culture - Preliminary, Resulted Medications Current Medications Acetaminophen/ Hydrocodone Bitart (Lortab 5/325) 2 tab 1X ONCE PO Last administered on 03/01/20at 02:46; Start 03/01/20 at 03:00; Stop 03/01/20 at 03:01; Status DC Cephalexin HCl (Keflex) 1,000 mg 1X ONCE PO Last administered on 03/01/20at 02:46; Start 03/01/20 at 03:00; Stop 03/01/20 at 03:01; Status DC Ketorolac Tromethamine (Toradol 30mg Vial) 30 mg 1X ONCE IM ; Start 03/01/20 at 04:00; Stop 03/01/20 at 04:01; Status DC Iohexol (Omnipaque 300 Mg/ml) 75 ml 1X ONCE IV Last administered on 03/01/20at 05:13; Start 03/01/20 at 05:00; Stop 03/01/20 at 05:01; Status DC Info (CONTRAST GIVEN -- Rx MONITORING) 1 each PRN DAILY PRN MC SEE COMMENTS; Start 03/01/20 at 04:30; Stop 03/03/20 at 04:29; Status DC Ketorolac Tromethamine (Toradol 15mg Vial) 15 mg 1X ONCE IVP Last administered on 03/01/20at 04:31; Start 03/01/20 at 05:00; Stop 03/01/20 at 05:01; Status DC Ketorolac Tromethamine (Toradol 15mg Vial) 15 mg STK-MED ONCE .ROUTE ; Start 03/01/20 at 04:29; Stop 03/01/20 at 04:29; Status DC Ondansetron HCl (Zofran) 4 mg STK-MED ONCE .ROUTE ; Start 03/01/20 at 06:05; Stop 03/01/20 at 06:05; Status DC Vancomycin HCl 2 gm/Sodium Chloride 500 ml @ 250 mls/hr 1X ONCE IV Last administered on 03/01/20at 06:23; Start 03/01/20 at 06:30; Stop 03/01/20 at 08:29; Status DC Ceftriaxone Sodium (Rocephin) 1 gm 1X ONCE IVP Last administered on 03/01/20at 06:23; Start 03/01/20 at 06:30; Stop 03/01/20 at 06:31; Status DC Ondansetron HCl (Zofran) 4 mg PRN Q8HRS PRN IV NAUSEA/VOMITING 1ST CHOICE; Start 03/01/20 at 06:30; Stop 03/01/20 at 15:53; Status DC Morphine Sulfate (Morphine Sulfate) 4 mg PRN Q2HR PRN IV SEVERE PAIN 7-10 Last administered on 03/02/20at 06:30; Start 03/01/20 at 06:30; Stop 03/02/20 at 06:29; Status DC Vancomycin HCl (Vanco Per Pharmacy) 1 each PRN DAILY PRN MC SEE COMMENTS Last administered on 03/04/20at 09:25; Start 03/01/20 at 06:30 Vancomycin HCl 1.25 gm/Sodium Chloride 250 ml @ 167 mls/hr Q12H IV Last administered on 03/02/20at 07:59; Start 03/01/20 at 19:00; Stop 03/02/20 at 19:29; Status DC Vancomycin HCl (Vancomycin Trough Level) 1 each 1X ONCE MC Last administered on 03/02/20at 18:30; Start 03/02/20 at 18:30; Stop 03/02/20 at 18:31; Status DC Enoxaparin Sodium (Lovenox 40mg Syringe) 40 mg Q24H SQ Last administered on 03/03/20at 17:08; Start 03/01/20 at 17:00 Ondansetron HCl (Zofran) 4 mg PRN Q6HRS PRN IVP NAUSEA/VOMITING; Start 03/01/20 at 16:00 Sennosides (Senna) 17.2 mg PRN BID PRN PO CONSTIPATION Last administered on 03/04/20at 05:26; Start 03/01/20 at 16:00 Docusate Sodium (Colace) 100 mg PRN DAILY PRN PO HARD STOOLS Last administered on 03/04/20at 05:26; Start 03/01/20 at 16:00 Morphine Sulfate (Morphine Sulfate) 4 mg PRN Q2HR PRN IV PAIN Last administered on 03/02/20at 11:44; Start 03/02/20 at 11:00 Colchicine (Colcrys) 0.6 mg BID PO Last administered on 03/04/20at 07:58; Start 03/02/20 at 13:00 Lactobacillus Rhamnosus (Culturelle) 1 cap BID PO Last administered on 03/04/20at 07:58; Start 03/02/20 at 21:00 Oxycodone/ Acetaminophen (Percocet 5/325) 1 tab PRN Q4HRS PRN PO MODERATE PAIN; Start 03/02/20 at 14:30 Oxycodone/ Acetaminophen (Percocet 5/325) 2 tab PRN Q4HRS PRN PO SEVERE PAIN Last administered on 03/04/20at 06:58; Start 03/02/20 at 14:45 Vancomycin HCl 1.5 gm/Sodium Chloride 500 ml @ 250 mls/hr Q8H IV Last administered on 03/04/20at 05:26; Start 03/02/20 at 20:00 Vancomycin HCl (Vancomycin Trough Level) 1 each 1X ONCE MC Last administered on 03/03/20at 19:30; Start 03/03/20 at 19:30; Stop 03/03/20 at 19:31; Status DC Active Scripts Active Reported No Known Medications Prior To Admisstion (Info) Each 1 Each MC 1X Vitals/I & O Vital Sign - Last 24 Hours 03/03/20 03/03/20 03/03/2003/03/20 13:30 15:00 17:08 18:21 Temp 97.9 97.9 Pulse 75 Resp 19 B/P (MAP) 125/62 (83) Pulse Ox 94 O2 Delivery Room Air Room Air Room Air Room Air 03/03/20 03/03/20 03/03/20 03/03/20 19:00 20:00 21:16 22:16 Temp 98.3 98.3 Pulse 85 Resp 18 B/P (MAP) 140/84 (102) Pulse Ox 98 O2 Delivery Room Air Room Air Room Air Room Air 03/03/20 03/04/20 03/04/20 03/04/20 23:00 02:46 03:00 03:46 Temp 98.6 98.3 98.6 98.3 Pulse 80 79 Resp 18 18 B/P (MAP) 117/74 (88) 129/86 (100) Pulse Ox 93 97 O2 Delivery Room Air Room Air Room Air Room Air 03/04/20 03/04/20 03/04/20 03/04/20 06:58 07:00 07:58 08:00 Temp 97.8 97.8 Pulse 72 Resp 18 B/P (MAP) 116/84 (95) Pulse Ox 91 O2 Delivery Room Air Room Air Room Air Room Air 03/04/20 11:00 Temp 97.8 97.8 Pulse 75 Resp 18 B/P (MAP) 121/72 (88) Pulse Ox 96 O2 Delivery Room Air Justicifation of Admission Dx: Justifications for Admission: Justification of Admission Dx: Yes BELKYS URIBE MD Mar 04, 2020 12:33
[2020-03-04] MEDS ORDERED: PRED-220 PO (12:45)
[2020-03-04] MEDS ORDERED: ALLO100T PO (12:45)
--- NOTE | 2020-03-04 12:51 | PDOC3 ---
Discharge Summary Visit Information Date of Admission: Mar 01, 2020 Date of Discharge: Mar 04, 2020 Final Diagnosis Problems Medical Problems: (1) Bradycardia Status: Acute (2) Left ankle effusion Status: Acute (3) Vasovagal syncope Status: Acute Brief Hospital Course Allergies Allergies Coded Allergies Type Severity Reaction Last Updated Verified No Known Drug Allergies 03/01/20 No Vital Signs Vital Signs Date Time Temp Pulse Resp B/P (MAP) Pulse Ox O2 Delivery O2 Flow Rate FiO2 03/04/20 11:00 97.8 75 18 121/72 (88) 96 Room Air 97.8 Lab Results Laboratory Tests Test 03/02/20 18:25 03/03/20 05:15 03/03/20 19:35 03/04/20 03:51 Vancomycin Level Trough 4.7 mcg/mL (10.0-20.0) 13.9 mcg/mL (10.0-20.0) Vancomycin Last Dose Date Unk Unk Vancomycin Last Dose Time Unk Unk White Blood Count 8.9 x10^3/uL (4.0-11.0) 6.2 x10^3/uL (4.0-11.0) Red Blood Count 4.22 x10^6/uL (4.30-5.70) 3.97 x10^6/uL (4.30-5.70) Hemoglobin 12.7 g/dL (13.0-17.5) 11.7 g/dL (13.0-17.5) Hematocrit 35.6 % (39.0-53.0) 33.8 % (39.0-53.0) Mean Corpuscular Volume 84 fL (79-100) 85 fL (79-100) Mean Corpuscular Hemoglobin 30 pg (25-35) 29 pg (25-35) Mean Corpuscular Hemoglobin Concent 36 g/dL (31-37) 35 g/dL (31-37) Red Cell Distribution Width 13.4 % (11.5-14.5) 13.3 % (11.5-14.5) Platelet Count 250 x10^3/uL (140-400) 279 x10^3/uL (140-400) Neutrophils (%) (Auto) 71 % (31-73) 60 % (31-73) Lymphocytes (%) (Auto) 17 % (24-48) 26 % (24-48) Monocytes (%) (Auto) 11 % (0-9) 10 % (0-9) Eosinophils (%) (Auto) 1 % (0-3) 3 % (0-3) Basophils (%) (Auto) 0 % (0-3) 1 % (0-3) Neutrophils # (Auto) 6.3 x10^3/uL (1.8-7.7) 3.7 x10^3/uL (1.8-7.7) Lymphocytes # (Auto) 1.5 x10^3/uL (1.0-4.8) 1.6 x10^3/uL (1.0-4.8) Monocytes # (Auto) 1.0 x10^3/uL (0.0-1.1) 0.6 x10^3/uL (0.0-1.1) Eosinophils # (Auto) 0.1 x10^3/uL (0.0-0.7) 0.2 x10^3/uL (0.0-0.7) Basophils # (Auto) 0.0 x10^3/uL (0.0-0.2) 0.0 x10^3/uL (0.0-0.2) Sodium Level 137 mmol/L (136-145) 139 mmol/L (136-145) Potassium Level 4.0 mmol/L (3.5-5.1) 3.8 mmol/L (3.5-5.1) Chloride Level 102 mmol/L (98-107) 103 mmol/L (98-107) Carbon Dioxide Level 28 mmol/L (21-32) 28 mmol/L (21-32) Anion Gap 7 (6-14) 8 (6-14) Blood Urea Nitrogen 9 mg/dL (8-26) 9 mg/dL (8-26) Creatinine 0.7 mg/dL (0.7-1.3) 0.8 mg/dL (0.7-1.3) Estimated GFR (Cockcroft-Gault) 120.4 103.2 Glucose Level 110 mg/dL (70-99) 107 mg/dL (70-99) Calcium Level 8.5 mg/dL (8.5-10.1) 8.8 mg/dL (8.5-10.1) Laboratory Tests Test 9/1/20 19:35 03/04/20 03:51 Vancomycin Level Trough 13.9 mcg/mL (10.0-20.0) Vancomycin Last Dose Date Unk Vancomycin Last Dose Time Unk White Blood Count 6.2 x10^3/uL (4.0-11.0) Red Blood Count 3.97 x10^6/uL (4.30-5.70) Hemoglobin 11.7 g/dL (13.0-17.5) Hematocrit 33.8 % (39.0-53.0) Mean Corpuscular Volume 85 fL (79-100) Mean Corpuscular Hemoglobin 29 pg (25-35) Mean Corpuscular Hemoglobin Concent 35 g/dL (31-37) Red Cell Distribution Width 13.3 % (11.5-14.5) Platelet Count 279 x10^3/uL (140-400) Neutrophils (%) (Auto) 60 % (31-73) Lymphocytes (%) (Auto) 26 % (24-48) Monocytes (%) (Auto) 10 % (0-9) Eosinophils (%) (Auto) 3 % (0-3) Basophils (%) (Auto) 1 % (0-3) Neutrophils # (Auto) 3.7 x10^3/uL (1.8-7.7) Lymphocytes # (Auto) 1.6 x10^3/uL (1.0-4.8) Monocytes # (Auto) 0.6 x10^3/uL (0.0-1.1) Eosinophils # (Auto) 0.2 x10^3/uL (0.0-0.7) Basophils # (Auto) 0.0 x10^3/uL (0.0-0.2) Sodium Level 139 mmol/L (136-145) Potassium Level 3.8 mmol/L (3.5-5.1) Chloride Level 103 mmol/L (98-107) Carbon Dioxide Level 28 mmol/L (21-32) Anion Gap 8 (6-14) Blood Urea Nitrogen 9 mg/dL (8-26) Creatinine 0.8 mg/dL (0.7-1.3) Estimated GFR (Cockcroft-Gault) 103.2 Glucose Level 107 mg/dL (70-99) Calcium Level 8.8 mg/dL (8.5-10.1) Brief Hospital Course Mr. Braswell is a 49 old male who presented with left ankle and knee effusion. Synovial fluid cultures were obtained and patient was started on broad-spectrum antibiotics. Gram stain of synovial fluid showed no organisms and cultures showed no growth to date. Patient does admit to a history of gout with similar presentation. Symptoms resolved during the course of admission and patient was discharged with oral prednisone, allopurinol, and pain medication. Follow-up with primary physician. Discharge Information Condition at Discharge: Improved Disposition/Orders: D/C to Home Scheduled Info (No Known Medications Prior To Admisstion) Each, 1 EACH 1X for none, (Reported) Entered as Reported by: NICOLE BENITES on 03/02/20350 Last Action: New Order on 03/02/20350 by NICOLE BENITES Justicifation of Admission Dx: Justifications for Admission: Justification of Admission Dx: Yes BELKYS URIBE MD Mar 04, 2020 12:51
== END 2020-03-04 14:15 | disposition home or self-care (01) | DRG 566 ==
LOC: ER 01:33 → 4 NORTH 06:23 → ED HOLD 06:35 → 4 NORTH 18:15
PROVIDERS: ADMIT Family Medicine; ATTEND Family Medicine
DX: M25.472 Effusion, left ankle (principal); M25.462 Effusion, left knee; R00.1 Bradycardia, unspecified; M77.30 Calcaneal spur, unspecified foot; M10.9 Gout, unspecified; M25.461 Effusion, right knee; Z79.899 Other long term (current) drug therapy
CPT/HCPCS: 36415; 73560; 73630; 73701; 80048; 80202; 84550; 85025; 86140; 87071; 87075; 89050; 96365; 96372; 96375; 99285; J0696; J1650; J1885; J2270; J3370; J7040; J7050; Q9967; 97530-GP; G0378; J7030

== ENCOUNTER 2020-03-12 15:15 | Emergency (ER) | payer SELFPAY ==
[~2020-03-12] VITALS: Ht 165.1 cm; Wt 75.0 kg
[~2020-03-12 15:15] MED LIST: ALLO100T PO; PRED-220 PO
[2020-03-12] MEDS ORDERED: IV NORMAL SALINE 1000ML BAG 1,000 ML IV ONE (15:30)
--- NOTE | 2020-03-12 15:31 | EKG ---
[facility] [address] [place] [address] Test Date: 2020-03-12 Test Time: 15:22:29 Pat Name: VIANNEY CAVAZOS Department: Room: Gender: M Training Lead: : 1970 Requested By: REJI MERCHANT Order Number: [id number] Reading MD: Measurements Intervals [place] Rate: 75 P: 49 MO: 152 QRS: 15 QRSD: 86 T: 23 QT: 378 QTc: 425 Interpretive Statements SINUS RHYTHM NO SPECIFIC ECG ABNORMALITIES RI6.02 No previous ECG available for comparison
[2020-03-12 15:42] LABS: BASO # 0.1 x10^3/uL (0.0-0.2); BASO % 1 % (0-3); EOS # 0.2 x10^3/uL (0.0-0.7); EOS % 2 % (0-3); HEMATOCRIT 40.7 % (39.0-53.0); HEMOGLOBIN 14.5 g/dL (13.0-17.5); LYMPH # 2.2 x10^3/uL (1.0-4.8); LYMPH % 25 % (24-48); MEAN CORPUSCULAR HEMOGLOBIN 30 pg (25-35); MEAN CORPUSCULAR HGB CONC 36 g/dL (31-37); MEAN CORPUSCULAR VOLUME 84 fL (79-100); MONO # 0.7 x10^3/uL (0.0-1.1); MONO % 7 % (0-9); NEUT # 5.9 x10^3/uL (1.8-7.7); NEUT % 65 % (31-73); PLATELET COUNT 396 x10^3/uL (140-400); RED BLOOD COUNT 4.85 x10^6/uL (4.30-5.70); RED CELL DISTRIBUTION WIDTH 13.5 % (11.5-14.5); WHITE BLOOD COUNT 9.1 x10^3/uL (4.0-11.0)
--- NOTE | 2020-03-12 15:52 | PHYS DOC ---
Past Medical History Past Medical History: Other Additional Past Medical Histor: LEFT KNEE FRACTURE, LEFT KNEE SWOLLEN Past Surgical History: Other Additional Past Surgical Histo: LEFT KNEE SX Smoking Status: Never Smoker Alcohol Use: Occasionally General Adult EDM: Chief Complaint: SYNCOPE HPI: HPI: Patient is a 49 year old male who presents with a syncopal event. Patient recently diagnosed with gout and was on steroids and pain medicine and was recently placed on blood pressure meds when he follow-up with his primary care doctor. Patient states he feels like his blood pressure was dropping a couple times today and then while at college she had a syncopal event that lasted less than a minute. Patient had some shortness of breath associated with it when he passed out but is currently not short of breath. Patient denies any chest pain. No fevers or cough. Patient only complains of pain in his feet due to the gout otherwise he has no complaints. Review of Systems: Review of Systems: Constitutional: Denies fever or chills. [] Eyes: Denies change in visual acuity. [] HENT: Denies nasal congestion or sore throat. [] Respiratory: Denies cough or shortness of breath. [] Cardiovascular: Denies chest pain or edema. [] GI: Denies abdominal pain, nausea, vomiting, bloody stools or diarrhea. [] : Denies dysuria. [] Musculoskeletal: Complains of bilateral feet pain Integument: Denies rash. [] Neurologic: Denies headache, focal weakness or sensory changes. [] Endocrine: Denies polyuria or polydipsia. [] Lymphatic: Denies swollen glands. [] Psychiatric: Denies depression or anxiety. [] Heart Score: Risk Factors: Risk Factors: DM, Current or recent (<one month) smoker, HTN, HLP, family hist ory of CAD, obesity. Risk Scores: Score 0 - 3: 2.5% MACE over next 6 weeks - Discharge Home Score 4 - 6: 20.3% MACE over next 6 weeks - Admit for Clinical Observation Score 7 - 10: 72.7% MACE over next 6 weeks - Early Invasive Strategies Current Medications: Current Medications Medications (Trade) Dose Ordered Sig/Yuriy Start Time Stop Time Status Last Admin Dose Admin Sodium Chloride 1,000 ml @ 1,000 mls/hr 1X ONCE 03/12/20 15:30 03/12/20 16:29 Allergies: Allergies: Allergies Coded Allergies Type Severity Reaction Last Updated Verified No Known Drug Allergies 03/01/20 No Physical Exam: PE: Constitutional: Well developed, well nourished, no acute distress, non-toxic appearance. [] HENT: Normocephalic, atraumatic, bilateral external ears normal, no trismus, nose normal. [] Eyes: PERRLA, EOMI, conjunctiva normal, no discharge. [] Neck: Normal range of motion, no tenderness, supple, no stridor. [] Cardiovascular:Heart rate regular rhythm, referral pulses intact, cap refill brisk Lungs & Thorax: Bilateral breath sounds clear, no respiratory distress Abdomen: soft, no tenderness, no masses, no pulsatile masses. [] Skin: Warm, dry, no erythema, no rash. [] Back: No tenderness, no CVA tenderness. [] Extremities: No tenderness, no cyanosis, no clubbing, ROM intact, no edema. [] Neurologic: Alert and oriented X 3, normal motor function, normal sensory fun ction, no focal deficits noted. [] Psychologic: Affect normal, judgement normal, mood normal. [] Current Patient Data: Labs: Laboratory Tests Test 03/12/20 15:35 White Blood Count 9.1 x10^3/uL Red Blood Count 4.85 x10^6/uL Hemoglobin 14.5 g/dL Hematocrit 40.7 % Mean Corpuscular Volume 84 fL Mean Corpuscular Hemoglobin 30 pg Mean Corpuscular Hemoglobin Concent 36 g/dL Red Cell Distribution Width 13.5 % Platelet Count 396 x10^3/uL Neutrophils (%) (Auto) 65 % Lymphocytes (%) (Auto) 25 % Monocytes (%) (Auto) 7 % Eosinophils (%) (Auto) 2 % Basophils (%) (Auto) 1 % Neutrophils # (Auto) 5.9 x10^3/uL Lymphocytes # (Auto) 2.2 x10^3/uL Monocytes # (Auto) 0.7 x10^3/uL Eosinophils # (Auto) 0.2 x10^3/uL Basophils # (Auto) 0.1 x10^3/uL Sodium Level 140 mmol/L Potassium Level 3.8 mmol/L Chloride Level 100 mmol/L Carbon Dioxide Level 32 mmol/L Anion Gap 8 Blood Urea Nitrogen 18 mg/dL Creatinine 1.0 mg/dL Estimated GFR (Cockcroft-Gault) 79.8 BUN/Creatinine Ratio 18 Glucose Level 103 mg/dL Calcium Level 8.9 mg/dL Total Bilirubin 0.4 mg/dL Aspartate Amino Transf (AST/SGOT) 12 U/L Alanine Aminotransferase (ALT/SGPT) 36 U/L Alkaline Phosphatase 102 U/L Total Protein 7.1 g/dL Albumin 3.7 g/dL Albumin/Globulin Ratio 1.1 Current Medications Medications (Trade) Dose Ordered Sig/Yuriy Route PRN Reason Start Time Stop Time Status Last Admin Dose Admin Sodium Chloride 1,000 ml @ 1,000 mls/hr 1X ONCE IV 03/12/20 15:30 03/12/20 16:29 03/12/20 15:59 Laboratory Tests Test 03/12/20 15:35 White Blood Count 9.1 x10^3/uL (4.0-11.0) Red Blood Count 4.85 x10^6/uL (4.30-5.70) Hemoglobin 14.5 g/dL (13.0-17.5) Hematocrit 40.7 % (39.0-53.0) Mean Corpuscular Volume 84 fL (79-100) Mean Corpuscular Hemoglobin 30 pg (25-35) Mean Corpuscular Hemoglobin Concent 36 g/dL (31-37) Red Cell Distribution Width 13.5 % (11.5-14.5) Platelet Count 396 x10^3/uL (140-400) Neutrophils (%) (Auto) 65 % (31-73) Lymphocytes (%) (Auto) 25 % (24-48) Monocytes (%) (Auto) 7 % (0-9) Eosinophils (%) (Auto) 2 % (0-3) Basophils (%) (Auto) 1 % (0-3) Neutrophils # (Auto) 5.9 x10^3/uL (1.8-7.7) Lymphocytes # (Auto) 2.2 x10^3/uL (1.0-4.8) Monocytes # (Auto) 0.7 x10^3/uL (0.0-1.1) Eosinophils # (Auto) 0.2 x10^3/uL (0.0-0.7) Basophils # (Auto) 0.1 x10^3/uL (0.0-0.2) Laboratory Tests 03/12/20 15:35 Vital Signs: Vital Signs Date Time Temp Pulse Resp B/P (MAP) Pulse Ox O2 Delivery O2 Flow Rate FiO2 03/12/20 15:15 97.5 73 12 111/72 (85) 98 Room Air 97.5 EKG: EKG: EKG interpreted by me normal sinus rhythm with a rate of 75 normal axis normal intervals normal ST segments [] Radiology/Procedures: Radiology/Procedures: [] Course & Med Decision Making: Course & Med Decision Making Pertinent Labs and Imaging studies reviewed. (See chart for details) [] 49-year-old male with a syncopal event. Patient recently has been treated for gout and I was told initially that he recently started blood pressure meds but patient says he has not taken them. Patient's work-up is negative in the ER. Patient denies any chest pain or current shortness of breath. Doubt pulmonary embolism or acute coronary syndrome. Patient has taken his oxycodone today which may have caused a drop in blood pressure. Patient on reassessment is resting comfortably in no distress. I think he is stable for discharge with outpatient follow-up. Discussed with patient which medications to take in which to stop which include stopping his blood pressure medicine and only take the oxycodone if severe pain. Patient be started on indomethacin. Diamondon Disclaimer: Altaf Disclaimer: This electronic medical record was generated, in whole or in part, using a voice recognition dictation system. Departure Departure Impression: Primary Impression: SYNCOPE AND COLLAPSE Disposition: 01 HOME, SELF-CARE Condition: STABLE Referrals: NO PCP (PCP) JOANN MEJIA MD 2-3 DAYS Patient Instructions: Syncope Additional Instructions: EMERGENCY DEPARTMENT GENERAL DISCHARGE INSTRUCTIONS Thank you for coming to [facility] Emergency Department (ED) today and trusting us with you care. We trust that you had a positivie experience in our Emergency Department. If you wish to speak to the department management, you may call the Director at [phone]. YOUR FOLLOW UP INSTRUCTIONS ARE FOLLOWS: 1. Do you have a private Doctor? If you do not have a private doctor, please ask for a resource list of physicians or clinics that may be able to assist you with follow up care. 2. The Emergency Physicain has interpreted your x-rays. The X-Ray specialist will also review them. If there is a change in the findings, you will be notified in 48 hours when at all possible. 3. A lab test or culture has been done, your results will be reviewed and you will be notified if you need a change in treatment. ADDITIONAL INSTRUCTIONS AND INFORMATION: 1. Your care today has been supervised by a physician who is specially trained in emergency care. Many problems require more than one evaluation for a complete diagnosis and treatment. We recommend that you schedule your follow up appointment as recommended to ensure complete treatment of you illness or injury. If you are unable to obtain follow up care and continue to have a problem, or if your consition worsens, we recommend that you return to the ED. 2. We are not able to safely determine your condition over the phone nor are we able to give sound medical advice over the phone. For these safety reasons, if you call for medical advice we will ask you to come to the ED for further evaluation. 3. If you have any questions regarding these discharge instructions please call the ED at [phone]. SAFETY INFORMATION: In the interest of safety, wellness, and injury prevention; we encourage you to wear your sealbelt, if you smoke; quite smoking, and we encourage family to use a protective helmet for bicycling and other sporting events that present an increased risk for head injury. IF YOUR SYMPTOMS WORSEN OR NEW SYMPTOMS DEVELOP, OR YOU HAVE CONCERNS ABOUT YOUR CONDITION; OR IF YOUR CONDITION WORSENS WHILE YOU ARE WAITING FOR YOUR FOLLOW UP APPOINTMENT; EITHER CONTACT YOUR PRIMARY CARE DOCTOR, THE PHYSICIAN WHOSE NAME AND NUMBER YOU WERE GIVEN, OR RETURN TO THE ED IMMEDIATELY. STOP THE BLOOD PRESSURE MEDICATION. ONLY TAKE THE ALLOPURINOL DAILY, THE IDOCIN 3 TIMES PER DAY AND THE OXYCODONE NEEDED Scripts Indomethacin (INDOMETHACIN) 50 Mg Capsule 1 CAP PO TID for arthritis for 10 Days, #30 CAP 0 Refills with food Prov: REJI MERCHANT MD 03/12/20 Justicifation of Admission Dx: Justifications for Admission: Justification of Admission Dx: Yes REJI MERCHANT MD Mar 12, 2020 15:52
[2020-03-12 16:02] LABS: CALCIUM 8.9 mg/dL (8.5-10.1); GFR 79.8; POTASSIUM 3.8 mmol/L (3.5-5.1)
[2020-03-12 16:08] LABS: ALBUMIN 3.7 g/dL (3.4-5.0); ALBUMIN/GLOBULIN RATIO 1.1 (1.0-1.7); TOTAL BILIRUBIN 0.4 mg/dL (0.2-1.0); TOTAL PROTEIN 7.1 g/dL (6.4-8.2)
[2020-03-12] MEDS ORDERED: INDO50CA15 PO (16:32)
[2020-03-12 16:50] VITALS: BP 118/75
== END 2020-03-12 16:55 | disposition home or self-care (01) ==
LOC: ER 15:15
DX: R55 Syncope and collapse (principal); R06.02 Shortness of breath; M10.9 Gout, unspecified
CPT/HCPCS: 36415; 80053; 85025; 93005; 96360; 99284; J7030

== ENCOUNTER 2020-03-20 02:15 | Emergency (ER) | payer SELFPAY ==
[~2020-03-20] VITALS: Ht 175.3 cm; Wt 86.3 kg
[~2020-03-20 02:15] MED LIST changes: +INDO50CA15 PO
[2020-03-20 02:27] VITALS: BP 147/101
[2020-03-20] MEDS ORDERED: HYDR50CA PO (02:52)
--- NOTE | 2020-03-20 02:52 | PHYS DOC ---
Past Medical History Past Medical History: Hypertension, Other Additional Past Medical Histor: GOUT Past Surgical History: No Surgical History Additional Past Surgical Histo: LEFT KNEE SX Smoking Status: Never Smoker Alcohol Use: Occasionally General Adult EDM: Chief Complaint: Insomnia HPI: HPI: Patient is a 49 year old male presents with chief complaint of insomnia. Patient states for last several nights he has a feeling of numbness in his leg report goes to sleep and is afraid to go to sleep as he feels his whole body may be numb. Patient has recently been battling gout and states the pain in his feet is better. Patient was here a week ago with an episode of syncope. Laboratory and EKG evaluation were unremarkable at that time. Patient denies any pain at this time. No fevers chills cough vomiting or diarrhea but states right before sleep he feels he has some numbness in his legs left greater than right. Review of Systems: Review of Systems: Constitutional: Denies fever or chills. [] Eyes: Denies change in visual acuity. [] HENT: Denies nasal congestion or sore throat. [] Respiratory: Denies cough or shortness of breath. [] Cardiovascular: Denies chest pain or edema. [] GI: Denies abdominal pain, nausea, vomiting, bloody stools or diarrhea. [] : Denies dysuria. [] Musculoskeletal: Denies back pain or joint pain. [] Integument: Denies rash. [] Neurologic: Denies headache, focal weakness but has intermittent tingling in the legs left greater than right at nighttime Endocrine: Denies polyuria or polydipsia. [] Lymphatic: Denies swollen glands. [] Psychiatric: Denies depression or anxiety but complains of insomnia Heart Score: Risk Factors: Risk Factors: DM, Current or recent (<one month) smoker, HTN, HLP, family history of CAD, obesity. Risk Scores: Score 0 - 3: 2.5% MACE over next 6 weeks - Discharge Home Score 4 - 6: 20.3% MACE over next 6 weeks - Admit for Clinical Observation Score 7 - 10: 72.7% MACE over next 6 weeks - Early Invasive Strategies Allergies: Allergies: Allergies Coded Allergies Type Severity Reaction Last Updated Verified No Known Drug Allergies 03/01/20 No Physical Exam: PE: Constitutional: Well developed, well nourished, no acute distress, non-toxic appearance. [] HENT: Normocephalic, atraumatic, bilateral external ears normal, oropharynx moist, nose normal. [] Eyes: PERRLA, EOMI, conjunctiva normal, no discharge. [] Neck: Normal range of motion, no tenderness, supple, no stridor. [] Cardiovascular:Heart rate regular rhythm, peripheral pulses are intact, cap refill is brisk Lungs & Thorax: Bilateral breath sounds clear, no respiratory distress Abdomen: soft, no tenderness, no masses, no pulsatile masses. [] Skin: Warm, dry, no erythema, no rash. [] Back: No tenderness, no CVA tenderness. [] Extremities: No tenderness, no cyanosis, no clubbing, ROM intact, no edema. [] Neurologic: Alert and oriented X 3, normal motor function, normal sensory function, no focal deficits noted. [] Psychologic: Affect normal, judgement normal, mood normal. [] EKG: EKG: [] Radiology/Procedures: Radiology/Procedures: [] Course & Med Decision Making: Course & Med Decision Making Pertinent Labs and Imaging studies reviewed. (See chart for details) [] 49-year-old male presents with insomnia and a vague feeling of numbness and fear of numbness right before bed. His neurological exam is normal I reviewed his record from 8 days ago and his laboratory and EKG were unremarkable. I will try the patient on Vistaril to help him sleep. Patient really needs to follow- up with a primary care physician. Altaf Disclaimer: Altaf Disclaimer: This electronic medical record was generated, in whole or in part, using a voice recognition dictation system. Departure Departure Impression: Primary Impression: Insomnia Disposition: 01 HOME, SELF-CARE Condition: STABLE Referrals: NO PCP (PCP) PCP Patient Instructions: Insomnia Additional Instructions: EMERGENCY DEPARTMENT GENERAL DISCHARGE INSTRUCTIONS THANK YOU for coming to [facility] Emergency Department (ED) today and trusting us with your care. We trust that you had a positive experience in our Emergency Department. If you wish to speak to the department Management you can contact the roving department end finder at . YOUR FOLLOW UP INSTRUCTIONS ARE FOLLOWS: Do you have a private doctor? If you do not have a private doctor, please ask for a resource list of physicians or clinics that may be able to assist you with follow up care. The Emergency Physician has interpreted your x-rays. The X-ray specialist will also review them. If there is a change in the findings you will be notified in 48 hours when at all possible. A lab test or lab culture may have been done, your results will be reviewed and you will be notified if you need a change in treatment. ADDITIONAL INSTRUCTIONS AND INFORMATION Your care today has been supervised by a physician who is specially trained in emergency care. Many problems require more than one evaluation for a complete diagnosis and treatment. We recommend that you schedule your follow up appointment as recommended to ensure complete treatment of your illness or injury. If you are unable to obtain follow up care and continue to have a problem, or if your condition worsens we recommend that you return to the ED. We are not able to safely determine your condition over the phone nor are we able to give sound medical advice over the phone. For these safety reasons, if you call for medical advice we will ask you to come to the ED for further evaluation If you have any questions regarding these discharge instructions please call the ED at . SAFETY INFORMATION In the interest of safety, wellness, and injury prevention; we encourage you to wear your seatbelt, if you smoke; quit smoking, and we encourage your family to use protective helmet for bicycling and other sporting events that present an increased risk for head injury. IF YOUR SYMPTOMS WORSEN OR NEW SYMPTOMS DEVELOP, OR YOU HAVE CONCERNS ABOUT YOUR CONDITION; OR IF YOUR CONDITION WORSENS WHILE YOU ARE WAITING FOR YOUR FOLLOW UP APPOINTMENT; EITHER CONTACT YOUR PRIMARY CARE DOCTOR, THE PHYSICIAN WHOSE NAME AND NUMBER YOU WERE GIVEN, OR RETURN TO THE ED IMMEDIATELY. Scripts Hydroxyzine Pamoate (VISTARIL) 50 Mg Capsule 50 MG PO QHS for INSOMNIA, #15 CAP Prov: REJI MERCHANT MD 03/20/20 Justicifation of Admission Dx: Justifications for Admission: Justification of Admission Dx: Yes REJI MERCHANT MD Mar 20, 2020 02:52
[2020-03-20] MEDS ORDERED: hydrOXYzine 25 MG TABLET PO PRN (03:00)
== END 2020-03-20 03:19 | disposition home or self-care (01) ==
LOC: ER 02:15
DX: G47.00 Insomnia, unspecified (principal); R20.0 Anesthesia of skin; I10 Essential (primary) hypertension; M10.9 Gout, unspecified
CPT/HCPCS: 99283

== ENCOUNTER 2021-10-07 23:52 | Inpatient (IN) | payer SELFPAY ==
[~2021-10-07] VITALS: Ht 172.7 cm; Wt 96.3 kg
[~2021-10-07 23:52] MED LIST changes: +HYDR50CA PO
[2021-10-08] VITALS (12 sets, daily range): BP systolic 99–144; BP diastolic 52–77
[2021-10-08] MEDS ORDERED: CONTRAST GIVEN. MC PRN (00:15)
[2021-10-08 00:18] LABS: BASO # 0.1 x10^3/uL (0.0-0.2); BASO % 1 % (0-3); EOS # 0.2 x10^3/uL (0.0-0.7); EOS % 2 % (0-3); HEMATOCRIT 38.3 % (39.0-53.0); HEMOGLOBIN 13.2 g/dL (13.0-17.5); LYMPH % 19 % (24-48); MEAN CORPUSCULAR HEMOGLOBIN 28 pg (25-35); MEAN CORPUSCULAR HGB CONC 34 g/dL (31-37); MEAN CORPUSCULAR VOLUME 82 fL (79-100); MONO # 1.6 x10^3/uL (0.0-1.1); MONO % 10 % (0-9); NEUT # 10.6 x10^3/uL (1.8-7.7); NEUT % 69 % (31-73); PLATELET COUNT 268 x10^3/uL (140-400); RED BLOOD COUNT 4.67 x10^6/uL (4.30-5.70); RED CELL DISTRIBUTION WIDTH 13.8 % (11.5-14.5); WHITE BLOOD COUNT 15.5 x10^3/uL (4.0-11.0)
[2021-10-08 00:28] LABS: PROTHROMBIN TIME PATIENT 13.3 SEC (11.7-14.0)
[2021-10-08 00:30] LABS: CREATININE 1.1 mg/dL (0.7-1.3); GFR 71.1; POTASSIUM 3.7 mmol/L (3.5-5.1)
[2021-10-08] MEDS ORDERED: IOHEXOL 350 MG/ML 100 ML VIAL. IV ONE (00:30)
[2021-10-08] MEDS ORDERED: ONDANSETRON PF 4 MG/2 ML VIAL. IVP ONE (00:30)
[2021-10-08] MEDS ORDERED: IV NORMAL SALINE 1000ML BAG 1,000 ML IV ONE ×2 (00:30)
[2021-10-08] MEDS ORDERED: fentaNYL PF VIAL 100 MCG/2 ML VIAL IVP ONE (00:30)
[2021-10-08 00:35] LABS: ALBUMIN/GLOBULIN RATIO 1.3 (1.0-1.7); TOTAL BILIRUBIN 0.7 mg/dL (0.2-1.0)
--- NOTE | 2021-10-08 00:43 | EKG ---
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
[2021-10-08] MEDS ORDERED: PIPERACILLIN/TAZOBACTAM 4.5 GM in IV DEXTROSE 5% 100ML 100 ML IV ONE ×2 (01:00→10:15)
--- NOTE | 2021-10-08 01:06 | RAD ---
STUDY: CT ANGIOGRAM CHEST ABDOMEN AND PELVIS WITH AND WITHOUT CONTRAST History: Abdominal aortic aneurysm Comparison: None Technique: Helical CT of the chest performed after the administration of 90 mL Omnipaque 350 intrave nous contrast and timed for angiographic evaluation of the aorta per dissection protocol. Coronal and sagittal MIP reconstructions were obtained. One or more of the following individualized dose reduction techniques were utilized for this examinat ion: 1. Automated exposure control 2. Adjustment of the mA and/or kV according to patient size 3. Use of iterative reconstruction technique. Findings: VASCULATURE: No aortic aneurysm, or dissection. Mild calcifications in the infrarenal abdominal aorta . Arch branches and abdominal branch origins are widely patent. Iliac arteries are normal in caliber and patent. CHEST: The heart is normal in size. No pericardial effusion. No thoracic lymphadenopathy. The visuali zed portion of the thyroid gland is normal. There is a calcified granuloma in the right lower lobe. T here is mild atelectasis in the posterior lower lobes and lingula. Minimal subpleural opacities in th e anterior right upper lobe, nonspecific. Central airways are clear. No pleural effusion or pneumotho rax. ABDOMEN AND PELVIS:The liver, gallbladder, bile ducts, pancreas, and spleen are normal. The adrenal g lands, kidneys, ureters, bladder, prostate gland are normal. The stomach, small bowel, and colon are normal. The appendix is dilated measuring 1 cm at the tip with surrounding fat stranding consistent with acut e appendicitis. There is a 2 mm appendicolith in the appendix. No evidence of perforation or abscess. No ascites. No lymphadenopathy. BONES: No acute osseous abnormality. IMPRESSION: 1. No aortic aneurysm or dissection. 2. Uncomplicated acute appendicitis. FOR INTERNAL CODING PURPOSES Critical result: Findings discussed with JAIRON BHATIA MD at 10/08/2021 1:03 AM. RESULT CODE: (C) Electronically signed by: Clotilde Curtis MD (10/08/2021 1:03 AM) [facility]
--- NOTE | 2021-10-08 01:46 | PHYS DOC ---
Past Medical History Past Medical History: Hypertension, Other Additional Past Medical Histor: GOUT Past Surgical History: Other Additional Past Surgical Histo: LEFT KNEE SX Smoking Status: Never Smoker Alcohol Use: Occasionally Adult General Chief Complaint Chief Complaint: HYPOTENSION HPI HPI The patient is a 50-year-old male with a history of hypertension, hyperlipidemia, gout on allopurinol and restless leg syndrome on ropinirole. He is Georgian-speaking; fluent telephonic interpretation offered but patient prefers to have his bilingual daughter translate. Mr. Braswell presents for evaluation of what he describes as severe generalized abdominal discomfort with onset about 12 hours prior to arrival. Associated nausea without vomiting. No associated fevers, upper respiratory congestion/rhinorrhea, cough, sore throat, shortness of breath or chest pain of any kind, flank pain, midline back pain, dysuria, hematuria, polyuria or oliguria, groin pain, changes in bowel habits, pain or swelling to arms or legs. Patient went to the fire station to have his blood pressure checked prior to coming here. It was soft. He was offered EMS transport but declined it and came here POV. On arrival he is pale and somewhat diaphoretic. He is requiring a small amount of nasal cannula oxygen to maintain saturation which is not normal for him. Review of Systems Review of Systems A 12 point review of systems was completed and was negative except where noted in HPI above. Current Medications Current Medications Current Medications Medications (Trade) Dose Ordered Sig/Yuriy Start Time Stop Time Status Last Admin Dose Admin Fentanyl Citrate (Fentanyl 2ml Vial) 50 mcg 1X ONCE 10/08/21 00:30 10/08/21 00:31 DC 10/08/21 01:15 50 MCG Info (CONTRAST GIVEN -- Rx MONITORING) 1 each PRN DAILY PRN 10/08/21 00:15 10/10/21 00:14 Iohexol (Omnipaque 350 Mg/ml) 90 ml 1X ONCE 10/08/21 00:30 10/08/21 00:31 DC 10/08/21 00:26 90 ML Ondansetron HCl (Zofran) 4 mg 1X ONCE 10/08/21 00:30 10/08/21 00:31 DC 10/08/21 01:13 4 MG Piperacillin Sod/ Tazobactam Sod 4.5 gm/Dextrose 100 ml @ 200 mls/hr 1X ONCE 10/08/21 01:00 10/08/21 01:29 DC 10/08/21 01:21 200 MLS/HR Sodium Chloride 1,000 ml @ 1,000 mls/hr 1X ONCE 10/08/21 00:30 10/08/21 01:29 DC 10/08/21 01:11 1,000 MLS/HR Allergies Allergies Allergies Coded Allergies Type Severity Reaction Last Updated Verified No Known Drug Allergies 03/01/20 No Physical Exam Physical Exam 50-year-old male appearing acutely ill, pale and somewhat diaphoretic. Head is normocephalic and atraumatic. Neck is supple and nontender. Oropharynx is moist. Lungs are clear to auscultation at all stations. There is a normal S1 and S2 without rubs or gallops and capillary refill is appropriate, less than 2 seconds globally. Abdomen is tender over all 4 quadrants without rebound or guarding. No clear focality to tenderness on my exam. Skin is warm and dry without cyanosis, clubbing or edema. Psychiatrically, the patient demonstrates appropriate mood and affect and is alert. Evaluation of the extremities reveals BUEs and BLEs neurovascularly intact distally strength 5-5, sensation intact light touch in all nerve distributions, radial, DP and PT pulses 2+ bilaterally, capillary refill less than 2 seconds, hands and feet warm and well-perfused. No dependent peripheral edema distally. No calf tenderness or swelling bilaterally. Sabino's test is negative bilaterally. Current Patient Data Vital Signs Vital Signs Date Time Temp Pulse Resp B/P (MAP) Pulse Ox O2 Delivery O2 Flow Rate FiO2 10/08/21 01:15 16 99 Room Air 10/08/21 00:51 76 112/71 (85) 2.0 10/07/21 23:55 97.6 97.6 Lab Values Laboratory Tests Test 10/08/21 00:00 10/08/21 00:01 Glucose (Fingerstick) 135 mg/dL (70-99) H White Blood Count 15.5 x10^3/uL (4.0-11.0) H Red Blood Count 4.67 x10^6/uL (4.30-5.70) Hemoglobin 13.2 g/dL (13.0-17.5) Hematocrit 38.3 % (39.0-53.0) L Mean Corpuscular Volume 82 fL (79-100) Mean Corpuscular Hemoglobin 28 pg (25-35) Mean Corpuscular Hemoglobin Concent 34 g/dL (31-37) Red Cell Distribution Width 13.8 % (11.5-14.5) Platelet Count 268 x10^3/uL (140-400) Neutrophils (%) (Auto) 69 % (31-73) Lymphocytes (%) (Auto) 19 % (24-48) L Monocytes (%) (Auto) 10 % (0-9) H Eosinophils (%) (Auto) 2 % (0-3) Basophils (%) (Auto) 1 % (0-3) Neutrophils # (Auto) 10.6 x10^3/uL (1.8-7.7) H Lymphocytes # (Auto) 3.0 x10^3/uL (1.0-4.8) Monocytes # (Auto) 1.6 x10^3/uL (0.0-1.1) H Eosinophils # (Auto) 0.2 x10^3/uL (0.0-0.7) Basophils # (Auto) 0.1 x10^3/uL (0.0-0.2) Prothrombin Time 13.3 SEC (11.7-14.0) Prothrombin Time INR 1.0 (0.8-1.1) Activated Partial Thromboplast Time 28 SEC (24-38) Sodium Level 142 mmol/L (136-145) Potassium Level 3.7 mmol/L (3.5-5.1) Chloride Level 105 mmol/L (98-107) Carbon Dioxide Level 27 mmol/L (21-32) Anion Gap 10 (6-14) Blood Urea Nitrogen 24 mg/dL (8-26) Creatinine 1.1 mg/dL (0.7-1.3) Estimated GFR (Cockcroft-Gault) 71.1 BUN/Creatinine Ratio 22 (6-20) H Glucose Level 159 mg/dL (70-99) H Lactic Acid Level 1.8 mmol/L (0.4-2.0) Calcium Level 9.0 mg/dL (8.5-10.1) Total Bilirubin 0.7 mg/dL (0.2-1.0) Aspartate Amino Transferase (AST) 14 U/L (15-37) L Alanine Aminotransferase (ALT) 29 U/L (16-63) Alkaline Phosphatase 101 U/L (46-116) Troponin I High Sensitivity 5 ng/L (4-75) Total Protein 7.0 g/dL (6.4-8.2) Albumin 4.0 g/dL (3.4-5.0) Albumin/Globulin Ratio 1.3 (1.0-1.7) Lipase 86 U/L (73-393) Laboratory Tests 10/08/21 00:01 Laboratory Tests 10/08/21 00:01 EKG EKG Sinus rhythm, rate 67, no acute ST elevation or depression, ME 158, QRS 92, QTc 438, EP interpretation. Nonischemic tracing, intervals appropriate. Radiology/Procedures Radiology/Procedures STUDY: CT ANGIOGRAM CHEST ABDOMEN AND PELVIS WITH AND WITHOUT CONTRAST History: Abdominal aortic aneurysm Comparison: None Technique: Helical CT of the chest performed after the administration of 90 mL Omnipaque 350 intravenous contrast and timed for angiographic evaluation of the aorta per dissection protocol. Coronal and sagittal MIP reconstructions were obtained. One or more of the following individualized dose reduction techniques were utilized for this examination: 1. Automated exposure control 2. Adjustment of the mA and/or kV according to patient size 3. Use of iterative reconstruction technique. Findings: VASCULATURE: No aortic aneurysm, or dissection. Mild calcifications in the infrarenal abdominal aorta. Arch branches and abdominal branch origins are widely patent. Iliac arteries are normal in caliber and patent. CHEST: The heart is normal in size. No pericardial effusion. No thoracic lymphadenopathy. The visualized portion of the thyroid gland is normal. There is a calcified granuloma in the right lower lobe. There is mild atelectasis in the posterior lower lobes and lingula. Minimal subpleural opacities in the anterior right upper lobe, nonspecific. Central airways are clear. No pleural effusion or pneumothorax. ABDOMEN AND PELVIS:The liver, gallbladder, bile ducts, pancreas, and spleen are normal. The adrenal glands, kidneys, ureters, bladder, prostate gland are normal. The stomach, small bowel, and colon are normal. The appendix is dilated measuring 1 cm at the tip with surrounding fat stranding consistent with acute appendicitis. There is a 2 mm appendicolith in the appendix. No evidence of perforation or abscess. No ascites. No lymphadenopathy. BONES: No acute osseous abnormality. IMPRESSION: 1. No aortic aneurysm or dissection. 2. Uncomplicated acute appendicitis. FOR INTERNAL CODING PURPOSES Critical result: Findings discussed with JAIRON BHATIA MD at 10/08/2021 1:03 AM. RESULT CODE: (C) Electronically signed by: Clotilde Curtis MD (10/08/2021 1:03 AM) [facility] DICTATED and SIGNED BY: CLOTILDE CURTIS MD DATE: 10/08/2149 Course & Med Decision Making Course & Med Decision Making Large work-up initiated as above; CT angiography of the chest, abdomen and pelvis obtained as given patient's initial clinical presentation with soft blood pressure, pallor, diaphoresis and severe abdominal pain, concern was for pos sible vascular emergency. Work-up instead reveals uncomplicated acute appendicitis. Have given a dose of Zosyn. Patient resting comfortably in no distress with much improved vital signs after IV fluids and medication for nausea and pain. Will bring in for further care under hospitalist Dr. Gorman, who graciously accepts. Case discussed in detail with Dr. De La Rosa who plans OR later in the morning. Patient and family updated and all of their questions have been answered. Dragon Disclaimer Dragon Disclaimer This electronic medical record was generated, in whole or in part, using a voice recognition dictation system. Departure Departure Impression: Primary Impression: Acute appendicitis Disposition: ADMITTED INPATIENT Condition: STABLE Referrals: NON,STAFF (PCP) Problem Qualifiers Primary Impression: Acute appendicitis Acute appendicitis type: with localized peritonitis Appendicitis gangrene presence: without gangrene Appendicitis perforation presence: without perforation Appendicitis abscess presence: without abscess Qualified Codes: K35.30 - Acute appendicitis with localized peritonitis, without perforation or gangrene JAIRON BHATIA MD Oct 08, 2021 01:46
[2021-10-08] MEDS ORDERED: IV DEXTROSE 5%-LACT RINGERS 1,000 ML IV ONE (02:00)
[2021-10-08] MEDS ORDERED: MORPHINE SULFATE 2 MG/ML INJ. IVP PRN ×2 (02:00→12:45)
[2021-10-08] MEDS ORDERED: ONDANSETRON PF 4 MG/2 ML VIAL. IVP PRN (02:00)
[2021-10-08 03:32] LABS: BACTERIA,URINE 0 /HPF (0-FEW); RBC,URINE 0 /HPF (0-2); WBC,URINE OCC /HPF (0-4)
[2021-10-08] MEDS ORDERED: ATOR40TA59 PO (04:27)
[2021-10-08] MEDS ORDERED: INDO50CA15 PO (04:27)
[2021-10-08] MEDS ORDERED: LISI10TA16 PO (04:27)
[2021-10-08] MEDS ORDERED: BUPIVACAINE-EPI 0.25% 30 ML VIAL KIT. ONE (09:56)
[2021-10-08] MEDS ORDERED: fentaNYL PF VIAL 250 MCG/5 ML VIAL ONE (10:01)
[2021-10-08] MEDS ORDERED: LIDOCAINE 2% PF 5 ML VIAL. ONE (10:01)
[2021-10-08] MEDS ORDERED: PROPOFOL 10 MG/ML (20ML) VIAL. IV ONE (10:01)
[2021-10-08] MEDS ORDERED: ROCURONIUM 50 MG/5 ML VIAL. ONE (10:03)
[2021-10-08] MEDS ORDERED: SEVOFLURANE 16 TO 30 MINUTES. IH ONE (10:03)
[2021-10-08] MEDS ORDERED: ONDANSETRON PF 4 MG/2 ML VIAL. ONE (10:05)
[2021-10-08] MEDS ORDERED: DEXAMETHASONE SOD PHOS 4 MG/ML VIAL ONE (10:05)
--- NOTE | 2021-10-08 10:13 | PDOC2 ---
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 He has had lower abdominal pain for approximately 12 hours became worse so he came to the emergency department for further evaluation. Found to have elevated white count and a CT scan showing signs consistent with acute appendicitis without abscess or rupture Past Medical History Cardiovascular: HTN, Hyperlipidemia Pulmonary: No pertinent hx GI: No pertinent hx Heme/Onc: No pertinent hx Hepatobiliary: No pertinent hx Psych: No pertinent hx Rheumatologic: Gout Infectious disease: No pertinent hx ENT: No pertinent hx Renal/: No pertinent hx Endocrine: No pertinent hx Dermatology: No pertinent hx Past Surgical History Past Surgical History: Other (Repair of lower extremity after fracture) Family History Family History: No Significant Social History No ALCOHOL: occassional Drugs: None Lives: with Family Current Problem List Problem List Problems Medical Problems: (1) Acute appendicitis Status: Acute Current Medications Current Medications Current Medications Iohexol (Omnipaque 350 Mg/ml) 90 ml 1X ONCE IV Last administered on 10/08/21at 00:26; Start 10/08/21 at 00:30; Stop 10/08/21 at 00:31; Status DC Info (CONTRAST GIVEN -- Rx MONITORING) 1 each PRN DAILY PRN MC SEE COMMENTS; Start 10/08/21 at 00:15; Stop 10/10/21 at 00:14 Sodium Chloride 1,000 ml @ 1,000 mls/hr 1X ONCE IV Last administered on 10/08/21at 00:30; Start 10/08/21 at 00:30; Stop 10/08/21 at 01:29; Status DC Sodium Chloride 1,000 ml @ 1,000 mls/hr 1X ONCE IV Last administered on 10/08/21at 01:11; Start 10/08/21 at 00:30; Stop 10/08/21 at 01:29; Status DC Fentanyl Citrate (Fentanyl 2ml Vial) 50 mcg 1X ONCE IVP Last administered on 10/08/21at 01:15; Start 10/08/21 at 00:30; Stop 10/08/21 at 00:31; Status DC Ondansetron HCl (Zofran) 4 mg 1X ONCE IVP Last administered on 10/08/21at 01:13; Start 10/08/21 at 00:30; Stop 10/08/21 at 00:31; Status DC Piperacillin Sod/ Tazobactam Sod 4.5 gm/Dextrose 100 ml @ 200 mls/hr 1X ONCE IV Last administered on 10/08/21at 01:21; Start 10/08/21 at 01:00; Stop 10/08/21 at 01:29; Status DC Ondansetron HCl (Zofran) 4 mg PRN Q8HRS PRN IVP NAUSEA/VOMITING 1ST CHOICE; Start 10/08/21 at 02:00; Stop 10/09/21 at 01:59 Morphine Sulfate (Morphine Sulfate) 2 mg PRN Q2HR PRN IVP SEVERE PAIN 7-10 Last administered on 10/08/21at 09:21; Start 10/08/21 at 02:00; Stop 10/09/21 at 01:59 Dextrose/Lactated Ringer's 1,000 ml @ 125 mls/hr 1X ONCE IV Last administered on 10/08/21at 02:59; Start 10/08/21 at 02:00; Stop 10/08/21 at 09:59; Status DC Bupivacaine HCl/ Epinephrine Bitart (Sensorcain-Epi 0.25% Kit) 30 ml STK-MED ONCE .ROUTE ; Start 10/08/21 at 09:56; Stop 10/08/21 at 09:57; Status DC Fentanyl Citrate (Fentanyl 5ml Vial) 250 mcg STK-MED ONCE .ROUTE ; Start 10/08/21 at 10:01; Stop 10/08/21 at 10:02; Status DC Lidocaine HCl (Lidocaine Pf 2% Vial) 5 ml STK-MED ONCE .ROUTE ; Start 10/08/21 at 10:01; Stop 10/08/21 at 10:02; Status DC Propofol (Diprivan) 200 mg STK-MED ONCE IV ; Start 10/08/21 at 10:01; Stop 10/08/21 at 10:02; Status DC Sevoflurane (Ultane) 15 ml STK-MED ONCE IH ; Start 10/08/21 at 10:03; Stop 10/08/21 at 10:03; Status DC Rocuronium [place] (Zemuron) 50 mg STK-MED ONCE .ROUTE ; Start 10/08/21 at 10:03; Stop 10/08/21 at 10:04; Status DC Ondansetron HCl (Zofran) 4 mg STK-MED ONCE .ROUTE ; Start 10/08/21 at 10:05; Stop 10/08/21 at 10:06; Status DC Dexamethasone Sodium Phosphate (Decadron) 4 mg STK-MED ONCE .ROUTE ; Start 10/08/21 at 10:05; Stop 10/08/21 at 10:06; Status DC Active Scripts Active Vistaril (Hydroxyzine Pamoate) 50 Mg Capsule 50 Mg PO QHS Indomethacin 50 Mg Capsule 1 Cap PO TID 10 Days with food Prednisone (Prednisone) 10 Mg Tablet 3 Tab PO DAILY 5 Days Allopurinol 100 Mg Tablet 1 Tab PO DAILY Reported Indomethacin 50 Mg Capsule 1 Cap PO BID 10 Days with food Atorvastatin Calcium 40 Mg Tablet 1 Tab PO DAILY Lisinopril 10 Mg Tablet 1 Tab PO DAILY Allergies Allergies: Coded Allergies: No Known Drug Allergies (Unverified , 03/01/20) ROS General: No: Chills, Night Sweats, Fatigue, Malaise, Appetite, Other PSYCHOLOGICAL ROS: No: Anxiety, Behavioral Disorder, Concentration difficultie, Decreased libido, Depression, Disorientation, Hallucinations, Hostility, Irritablity, Memory difficulties, Mood Swings, Obsessive thoughts, Physical abuse, Sexual abuse, Sleep disturbances, Suicidal ideation, Other Eyes: No Blurry vision, No Decreased vision, No Double vision, No Dry eyes, No Excessive tearing, No Eye Pain, No Itchy Eyes, No Loss of vision, No Photophobia, No Scotomata, No Uses contacts, No Uses glasses, No Other HEENT: No: Heacaches, Visual Changes, Hearing change, Nasal congestion, Nasal discharge, Oral lesions, Sinus pain, Sore Throat, Epistaxis, Sneezing, Snoring, Tinnitus, Vertigo, Vocal changes, Other ALLERGY AND IMMUNOLOGY: No: Hives, Insect Bite Sensitivity, Itchy/Watery Eyes, Nasal Congestion, Post Nasal Drip, Seasonal Allergies, Other Hematological and Lymphatic: No: Bleeding Problems, Blood Clots, Blood Transfusions, Brusing, Night Sweats, Pallor, Swollen Lymph Nodes, Other ENDOCRINE: No: Breast Changes, Galactorrhea, Hair Pattern Changes, Hot Flashes, Malaise/lethargy, Mood Swings, Palpitations, Polydipsia/polyuria, Skin Changes, Temperature Intolerance, Unexpected Weight Changes, Other Respiratory: No: Cough, Hemoptysis, Orthopnea, Pleuritic Pain, Shortness of breath, SOB with excertion, Sputum Changes, Stridor, Tachypnea, Wheezing, Other Cardiovascular: No Chest Pain, No Palpitations, No Orthopnea, No Paroxysmal Noc. Dyspnea, No Edema, No Lt Headedness, No Other Gastrointestinal: Yes Nausea, Yes Abdominal Pain Genitourinary: No Dysuria, No Frequency, No Incontinence, No Hematuria, No Retention, No Discharge, No Urgency, No Pain, No Flank Pain, No Other, No , No , No , No , No , No , No Musculoskeletal: No Gait Disturbance, No Joint Pain, No Joint Stiffness, No Joint Swelling, No Muscle Pain, No Muscular Weakness, No Pain In:, No Swelling In:, No Other Neurological: No Behavorial Changes, No Bowel/Bladder ControlChng, No Confusion, No Dizziness, No Gait Disturbance, No Headaches, No Impaired Coord/balance, No Memory Loss, No Numbness/Tingling, No Seizures, No Speech Problems, No Tremors, No Visual Changes, No Weakness, No Other Skin: No Dry Skin, No Eczema, No Hair Changes, No Lumps, No Mole Changes, No Mottling, No Nail Changes, No Pruritus, No Rash, No Skin Lesion Changes, No Other, No Acne Physical Exam General: Alert, Oriented X3, Cooperative, mild distress HEENT: Atraumatic, EOMI Lungs: Clear to auscultation, Normal air movement Heart: Regular rate, No murmurs Abdomen: Normal bowel sounds, Soft, Other (Tender to palpation right lower quadrant) Extremities: No edema Skin: No significant lesion Neuro: Normal speech Psych/Mental Status: Mental status NL Vitals VITALS Vital Signs Date Time Temp Pulse Resp B/P (MAP) Pulse Ox O2 Delivery O2 Flow Rate FiO2 10/08/21 09:21 18 Room Air 10/08/21 07:00 98.0 85 118/71 (87) 95 98.0 10/08/21 00:51 2.0 Labs Labs Laboratory Tests Test 10/08/21 00:00 10/08/21 00:01 10/08/21 02:55 10/08/21 07:30 Glucose (Fingerstick) 135 mg/dL (70-99) White Blood Count 15.5 x10^3/uL (4.0-11.0) Red Blood Count 4.67 x10^6/uL (4.30-5.70) Hemoglobin 13.2 g/dL (13.0-17.5) Hematocrit 38.3 % (39.0-53.0) Mean Corpuscular Volume 82 fL (79-100) Mean Corpuscular Hemoglobin 28 pg (25-35) Mean Corpuscular Hemoglobin Concent 34 g/dL (31-37) Red Cell Distribution Width 13.8 % (11.5-14.5) Platelet Count 268 x10^3/uL (140-400) Neutrophils (%) (Auto) 69 % (31-73) Lymphocytes (%) (Auto) 19 % (24-48) Monocytes (%) (Auto) 10 % (0-9) Eosinophils (%) (Auto) 2 % (0-3) Basophils (%) (Auto) 1 % (0-3) Neutrophils # (Auto) 10.6 x10^3/uL (1.8-7.7) Lymphocytes # (Auto) 3.0 x10^3/uL (1.0-4.8) Monocytes # (Auto) 1.6 x10^3/uL (0.0-1.1) Eosinophils # (Auto) 0.2 x10^3/uL (0.0-0.7) Basophils # (Auto) 0.1 x10^3/uL (0.0-0.2) Prothrombin Time 13.3 SEC (11.7-14.0) Prothromb Time International Ratio 1.0 (0.8-1.1) Activated Partial Thromboplast Time 28 SEC (24-38) Sodium Level 142 mmol/L (136-145) Potassium Level 3.7 mmol/L (3.5-5.1) Chloride Level 105 mmol/L (98-107) Carbon Dioxide Level 27 mmol/L (21-32) Anion Gap 10 (6-14) Blood Urea Nitrogen 24 mg/dL (8-26) Creatinine 1.1 mg/dL (0.7-1.3) Estimated GFR (Cockcroft-Gault) 71.1 BUN/Creatinine Ratio 22 (6-20) Glucose Level 159 mg/dL (70-99) Lactic Acid Level 1.8 mmol/L (0.4-2.0) Calcium Level 9.0 mg/dL (8.5-10.1) Total Bilirubin 0.7 mg/dL (0.2-1.0) Aspartate Amino Transf (AST/SGOT) 14 U/L (15-37) Alanine Aminotransferase (ALT/SGPT) 29 U/L (16-63) Alkaline Phosphatase 101 U/L (46-116) Troponin I High Sensitivity 5 ng/L (4-75) Total Protein 7.0 g/dL (6.4-8.2) Albumin 4.0 g/dL (3.4-5.0) Albumin/Globulin Ratio 1.3 (1.0-1.7) Lipase 86 U/L (73-393) Urine Collection Type Unknown Urine Color (Auto) Colorless Urine Turbidity Clear Urine pH (Auto) 7.0 (<5.0-8.0) Urine Specific [place] >1.050 (1.000-1.030) Urine Protein (Auto) Negative mg/dL (Negative) Urine Glucose (Auto)(UA) Negative mg/dL (Negative) Urine Ketones (Auto) Negative mg/dL (Negative) Urine Blood (Auto) Negative (Negative) Urine Nitrite Negative (Negative) Urine Bilirubin (Auto) Negative (Negative) Urine Urobilinogen (Auto) Normal mg/dL (Normal) Urine Leukocyte Esterase (Auto) Negative (Negative) Urine RBC 0 /HPF (0-2) Urine WBC Occ /HPF (0-4) Urine Squamous Epithelial Cells Occ /LPF Urine Bacteria 0 /HPF (0-FEW) SARS-CoV-2 Antigen (Rapid) Negative (NEGATIVE) Laboratory Tests Test 10/08/21 00:00 10/08/21 00:01 10/08/21 02:55 10/08/21 07:30 Glucose (Fingerstick) 135 mg/dL (70-99) White Blood Count 15.5 x10^3/uL (4.0-11.0) Red Blood Count 4.67 x10^6/uL (4.30-5.70) Hemoglobin 13.2 g/dL (13.0-17.5) Hematocrit 38.3 % (39.0-53.0) Mean Corpuscular Volume 82 fL (79-100) Mean Corpuscular Hemoglobin 28 pg (25-35) Mean Corpuscular Hemoglobin Concent 34 g/dL (31-37) Red Cell Distribution Width 13.8 % (11.5-14.5) Platelet Count 268 x10^3/uL (140-400) Neutrophils (%) (Auto) 69 % (31-73) Lymphocytes (%) (Auto) 19 % (24-48) Monocytes (%) (Auto) 10 % (0-9) Eosinophils (%) (Auto) 2 % (0-3) Basophils (%) (Auto) 1 % (0-3) Neutrophils # (Auto) 10.6 x10^3/uL (1.8-7.7) Lymphocytes # (Auto) 3.0 x10^3/uL (1.0-4.8) Monocytes # (Auto) 1.6 x10^3/uL (0.0-1.1) Eosinophils # (Auto) 0.2 x10^3/uL (0.0-0.7) Basophils # (Auto) 0.1 x10^3/uL (0.0-0.2) Prothrombin Time 13.3 SEC (11.7-14.0) Prothromb Time International Ratio 1.0 (0.8-1.1) Activated Partial Thromboplast Time 28 SEC (24-38) Sodium Level 142 mmol/L (136-145) Potassium Level 3.7 mmol/L (3.5-5.1) Chloride Level 105 mmol/L (98-107) Carbon Dioxide Level 27 mmol/L (21-32) Anion Gap 10 (6-14) Blood Urea Nitrogen 24 mg/dL (8-26) Creatinine 1.1 mg/dL (0.7-1.3) Estimated GFR (Cockcroft-Gault) 71.1 BUN/Creatinine Ratio 22 (6-20) Glucose Level 159 mg/dL (70-99) Lactic Acid Level 1.8 mmol/L (0.4-2.0) Calcium Level 9.0 mg/dL (8.5-10.1) Total Bilirubin 0.7 mg/dL (0.2-1.0) Aspartate Amino Transf (AST/SGOT) 14 U/L (15-37) Alanine Aminotransferase (ALT/SGPT) 29 U/L (16-63) Alkaline Phosphatase 101 U/L (46-116) Troponin I High Sensitivity 5 ng/L (4-75) Total Protein 7.0 g/dL (6.4-8.2) Albumin 4.0 g/dL (3.4-5.0) Albumin/Globulin Ratio 1.3 (1.0-1.7) Lipase 86 U/L (73-393) Urine Collection Type Unknown Urine Color (Auto) Colorless Urine Turbidity Clear Urine pH (Auto) 7.0 (<5.0-8.0) Urine Specific [place] >1.050 (1.000-1.030) Urine Protein (Auto) Negative mg/dL (Negative) Urine Glucose (Auto)(UA) Negative mg/dL (Negative) Urine Ketones (Auto) Negative mg/dL (Negative) Urine Blood (Auto) Negative (Negative) Urine Nitrite Negative (Negative) Urine Bilirubin (Auto) Negative (Negative) Urine Urobilinogen (Auto) Normal mg/dL (Normal) Urine Leukocyte Esterase (Auto) Negative (Negative) Urine RBC 0 /HPF (0-2) Urine WBC Occ /HPF (0-4) Urine Squamous Epithelial Cells Occ /LPF Urine Bacteria 0 /HPF (0-FEW) SARS-CoV-2 Antigen (Rapid) Negative (NEGATIVE) Assessment/Plan Assessment/Plan Acute appendicitis plan laparoscopic appendectomy LESTER HAMM MD Oct 08, 2021 10:13
[2021-10-08] MEDS ORDERED: PIPERACILLIN/TAZOBACTAM 4.5 GM in IV NORMAL SALINE 100ML 100 ML IV ONE (10:15)
[2021-10-08] MEDS ORDERED: SUGAMMADEX SODIUM 200 MG/2 ML VIAL. IVP ONE (11:00)
[2021-10-08] MEDS ORDERED: GLYCOPYRROLATE 1 MG/5 ML VIAL. ONE (11:04)
--- NOTE | 2021-10-08 11:05 | PDOC4 ---
Operative Note Operative Note Date: October 08, 2021 at 11:03 AM Preoperative diagnosis: Acute appendicitis Postoperative diagnosis: Same Procedure: Laparoscopic appendectomy Surgeon: Rj Specimen: Appendix Dictation: Patient is 50-year-old male is admitted to the hospital with right lower quadrant abdominal pain and elevated white count with a CT scan showing signs concerning for acute appendicitis. Procedure of laparoscopic appendectomy was explained to the patient detail risk benefits were also discussed including bleeding infection injury to intra-abdominal contents possible necessitating further open operations alternatives to this procedure also discussed with the patient who seemed to understand and gave a verbal and written consent to have the procedure performed. Patient was taken to the operating room placed in the supine position general anesthesia was initiated once patient was sleeping intubated his abdomen was prepped and draped usual sterile fashion using Chlor aPrep. An area just above his umbilicus was injected with quarter percent Marcaine with epinephrine incision was made 11 blade scalpel and a varies needle was placed within the abdomen creating pneumoperitoneum once this was complete 12 mm port was placed in a 5 mm camera placed within the abdomen which was inspected was noted the appendix was adherent to the lateral abdominal wall with some inflammation. A 5 mm port was placed low in the midline under direct visualization and a 5 mm port was placed in the right upper abdomen under direct visualization. The appendix was grasped freed up from its lateral attachments a window was propagated the base the appendix through the mesoappendix with a [place] dissector Endo HE stapler was then used to staple and transect the base of the appendix a second load was used to staple and transect the mesoappendix. The appendix was placed in Endo Catch bag moving the umbilicus right lower quadrant was irrigated and suctioned dry as well as the pelvis hemostasis deemed be appropriate the pneumoperitoneum was reduced all ports were removed the fascial defect at the umbilicus was closed with a [id number] 0 Vicryl suture and the skin was reapproximated all port sites for subcuticular Monocryl Mastisol Steri-Strips and island dressings were applied. Patient was awakened extubated in the operating room taken to recovery in stable condition all sponge instrument needle counts listed as correct estimated blood loss 5 mL LESTER HAMM MD Oct 08, 2021 11:05
[2021-10-08] MEDS ORDERED: oxyCODONE/APAP 5/325 1 TAB TABLET PO PRN ×2 (11:15)
[2021-10-08] MEDS: KETOROLAC 15 MG/ML VIAL. IVP SCH ×3 (12:00→23:59)
--- NOTE | 2021-10-08 12:10 | SSS ---
DATE OF SERVICE: 10/08/2021 ADMIT DATE: 10/08/2021 CHIEF COMPLAINT: Hypotension and abdominal pain. HISTORY OF PRESENT ILLNESS: The patient is a pleasant 50-year-old male who presented to the ER last night with the above chief complaints. Basically while he was in the ER, he was noted to have appendicitis. He was admitted overnight for consultation with General Surgery. I saw the patient this morning. He is doing well. He still has abdominal pain. Since then, General Surgery has seen him and took him to the OR. PAST MEDICAL HISTORY: Hypertension and gout and left knee surgery. ALLERGIES: None. FAMILY HISTORY: Diabetes. SOCIAL HISTORY: He does not drink, smoke or take drugs. MEDICATIONS: Reviewed, please refer to the MRAD. REVIEW OF SYSTEMS: GENERAL: No history of weight change, weakness or fevers. SKIN: No bruising, hair changes or rashes. EYES: No blurred, double or loss of vision. NOSE AND THROAT: No history of nosebleeds, hoarseness or sore throat. HEART: No history of palpitations, chest pain or shortness of breath on exertion. LUNGS: Denies cough, hemoptysis, wheezing or shortness of breath. GASTROINTESTINAL: He complains of right lower quadrant pain. GENITOURINARY: No history of frequency, urgency, hesitancy or nocturia. NEUROLOGIC: Denies history of numbness, tingling, tremor or weakness. PSYCHIATRIC: No history of panic, anxiety or depression. ENDOCRINE: No history of heat or cold intolerance, polyuria or polydipsia. EXTREMITIES: Denies muscle weakness, joint pain, pain on walking or stiffness. PHYSICAL EXAMINATION: VITALS: Within normal limits and are stable. GENERAL: No apparent distress. Alert and oriented. HEENT: Normal cephalic atraumatic, external auditory canals are patent. Eyes: Extraocular muscles are intact, pupils are equally round and reactive to light and accommodation. MUSCULOSKELETAL: Well developed, well nourished, good range of motion. ENDOCRINE: No thyromegaly was palpated. LYMPHATICS: No cervical chain or axillary nodes were noted. HEMATOPOIETIC: No bruising. NECK: Supple, no JVD, no thyromegaly was noted. LUNGS: Clear to auscultation in all lung euceda without rhonchi or wheezing. HEART: RRR, S1, S2 present. Peripheral pulses intact, no obvious murmurs were noted. ABDOMEN: He has right lower quadrant pain with decreased bowel sounds. EXTREMITIES: Without any cyanosis, clubbing, or edema. Pedal pulses intact, Homans sign is negative. NEUROLOGIC: Normal speech, normal tone. A and O x 3, moves all extremities, no obvious focal deficits. PSYCHIATRIC: Normal affect, normal mood. Stable. SKIN: No ulcerations or rashes, good skin turgor, no jaundice. VASCULAR: Good capillary refill, neurovascular bundle appears to be intact. LABORATORY DATA: CT of the abdomen shows appendicitis. White count is 15. ASSESSMENT AND PLAN: Appendicitis. The patient has been admitted. We have consulted General Surgery. He has been taken to the OR. Postoperatively, he will need wound care, pain meds, antibiotics, IV fluids, p.r.n. Zofran, p.r.n. morphine and hope to discharge tomorrow if stable. JAZ/SHANNA DR: Willam TID: [id number]
[2021-10-08] MEDS ORDERED: PROCHLORPERAZINE 10 MG/2 ML VIAL. IVP PRN (12:45)
[2021-10-08] MEDS ORDERED: IV RINGERS,LACTATED 1000ML 1,000 ML IV SCH (12:45)
[2021-10-08] MEDS ORDERED: HYDROmorphone 2 MG/ML INJ. IVP PRN (12:45)
[2021-10-08] MEDS ORDERED: fentaNYL PF VIAL 100 MCG/2 ML VIAL IVP PRN ×2 (12:45)
[2021-10-09 03:00] VITALS: BP 109/59
[2021-10-09] MEDS: KETOROLAC 15 MG/ML VIAL. IVP SCH (05:46)
[2021-10-09 07:00] VITALS: BP 116/61
--- NOTE | 2021-10-09 07:23 | PDOC ---
SURGICAL PROGRESS NOTE DATE: 10/09/21 TIME: 07:22 Subjective Patient doing well tolerating diet minimal pain Vital Signs Vital Signs Date Time Temp Pulse Resp B/P (MAP) Pulse Ox O2 Delivery O2 Flow Rate FiO2 10/09/21 03:00 98.3 81 18 109/59 (76) 94 98.3 10/08/21 20:00 Nasal Cannula 10/08/21 15:00 2.0 I&O Intake and Output 10/09/21 07:00 Intake Total 1220 ml Output Total 605 ml Balance 615 ml Intake Oral 120 ml IV Total 1100 ml Output Urine Total 600 ml Estimated Blood Loss 5 ml # Voids 1 PATIENT HAS A BROOKS: No General: Alert, Oriented X3, Cooperative, mild distress Abdomen: Normal bowel sounds, Soft, Other (Mild incisional tenderness wounds clean dry and intact) Labs Laboratory Tests Test 10/08/21 00:00 10/08/21 00:01 10/08/21 02:55 10/08/21 07:30 Glucose (Fingerstick) 135 mg/dL (70-99) White Blood Count 15.5 x10^3/uL (4.0-11.0) Red Blood Count 4.67 x10^6/uL (4.30-5.70) Hemoglobin 13.2 g/dL (13.0-17.5) Hematocrit 38.3 % (39.0-53.0) Mean Corpuscular Volume 82 fL (79-100) Mean Corpuscular Hemoglobin 28 pg (25-35) Mean Corpuscular Hemoglobin Concent 34 g/dL (31-37) Red Cell Distribution Width 13.8 % (11.5-14.5) Platelet Count 268 x10^3/uL (140-400) Neutrophils (%) (Auto) 69 % (31-73) Lymphocytes (%) (Auto) 19 % (24-48) Monocytes (%) (Auto) 10 % (0-9) Eosinophils (%) (Auto) 2 % (0-3) Basophils (%) (Auto) 1 % (0-3) Neutrophils # (Auto) 10.6 x10^3/uL (1.8-7.7) Lymphocytes # (Auto) 3.0 x10^3/uL (1.0-4.8) Monocytes # (Auto) 1.6 x10^3/uL (0.0-1.1) Eosinophils # (Auto) 0.2 x10^3/uL (0.0-0.7) Basophils # (Auto) 0.1 x10^3/uL (0.0-0.2) Prothrombin Time 13.3 SEC (11.7-14.0) Prothromb Time International Ratio 1.0 (0.8-1.1) Activated Partial Thromboplast Time 28 SEC (24-38) Sodium Level 142 mmol/L (136-145) Potassium Level 3.7 mmol/L (3.5-5.1) Chloride Level 105 mmol/L (98-107) Carbon Dioxide Level 27 mmol/L (21-32) Anion Gap 10 (6-14) Blood Urea Nitrogen 24 mg/dL (8-26) Creatinine 1.1 mg/dL (0.7-1.3) Estimated GFR (Cockcroft-Gault) 71.1 BUN/Creatinine Ratio 22 (6-20) Glucose Level 159 mg/dL (70-99) Lactic Acid Level 1.8 mmol/L (0.4-2.0) Calcium Level 9.0 mg/dL (8.5-10.1) Total Bilirubin 0.7 mg/dL (0.2-1.0) Aspartate Amino Transf (AST/SGOT) 14 U/L (15-37) Alanine Aminotransferase (ALT/SGPT) 29 U/L (16-63) Alkaline Phosphatase 101 U/L (46-116) Troponin I High Sensitivity 5 ng/L (4-75) Total Protein 7.0 g/dL (6.4-8.2) Albumin 4.0 g/dL (3.4-5.0) Albumin/Globulin Ratio 1.3 (1.0-1.7) Lipase 86 U/L (73-393) Urine Collection Type Unknown Urine Color (Auto) Colorless Urine Turbidity Clear Urine pH (Auto) 7.0 (<5.0-8.0) Urine Specific Proctor >1.050 (1.000-1.030) Urine Protein (Auto) Negative mg/dL (Negative) Urine Glucose (Auto)(UA) Negative mg/dL (Negative) Urine Ketones (Auto) Negative mg/dL (Negative) Urine Blood (Auto) Negative (Negative) Urine Nitrite Negative (Negative) Urine Bilirubin (Auto) Negative (Negative) Urine Urobilinogen (Auto) Normal mg/dL (Normal) Urine Leukocyte Esterase (Auto) Negative (Negative) Urine RBC 0 /HPF (0-2) Urine WBC Occ /HPF (0-4) Urine Squamous Epithelial Cells Occ /LPF Urine Bacteria 0 /HPF (0-FEW) SARS-CoV-2 Antigen (Rapid) Negative (NEGATIVE) Laboratory Tests Test 10/08/21 07:30 SARS-CoV-2 Antigen (Rapid) Negative (NEGATIVE) Problem List Problems Medical Problems: (1) Acute appendicitis Status: Acute Assessment/Plan Status post laparoscopic appendectomy, stable from surgical standpoint okay to discharge Follow-up with Dr. Hamm in 2 weeks no lifting more than 20 pounds for 2 weeks Justicifation of Admission Dx: Justifications for Admission: Justification of Admission Dx: Yes LESTER HAMM MD Oct 09, 2021 07:23
[2021-10-09 09:14] LABS: BASO % 0 % (0-3); EOS % 0 % (0-3); HEMOGLOBIN 12.6 g/dL (13.0-17.5); LYMPH # 1.2 x10^3/uL (1.0-4.8); LYMPH % 10 % (24-48); MEAN CORPUSCULAR HEMOGLOBIN 28 pg (25-35); MEAN CORPUSCULAR HGB CONC 34 g/dL (31-37); MEAN CORPUSCULAR VOLUME 83 fL (79-100); MONO # 0.8 x10^3/uL (0.0-1.1); MONO % 7 % (0-9); NEUT % 83 % (31-73); PLATELET COUNT 218 x10^3/uL (140-400); RED BLOOD COUNT 4.48 x10^6/uL (4.30-5.70); RED CELL DISTRIBUTION WIDTH 13.6 % (11.5-14.5)
[2021-10-09 09:39] LABS: CREATININE 0.7 mg/dL (0.7-1.3); GFR 119.9; POTASSIUM 3.6 mmol/L (3.5-5.1)
[2021-10-09 11:00] VITALS: BP 135/88
[2021-10-09] MEDS ORDERED: OXYC1TAB15 PO (11:10)
[2021-10-09] MEDS ORDERED: AMOX1TAB10 PO (11:10)
--- NOTE | 2021-10-09 11:32 | DS ---
DATE OF DISCHARGE: 10/09/2021 ADMITTING DIAGNOSIS: Appendicitis. DISCHARGE DIAGNOSIS: Postoperative day #1 laparoscopic appendectomy. HOSPITAL COURSE: The patient is a pleasant 50-year-old male who presented with appendicitis. He was taken to the OR. Today, I saw and examined him. He is doing well and wants to go home. He is tolerating his diet, we plan to discharge. DISPOSITION: Home. ACTIVITY: As tolerated. DIET: Low sodium. DISCHARGE MEDICATIONS: Please see the MRAD. P.r.n. hydrocodone 5 mg q. 6 and Augmentin 500 p.o. b.i.d. TOTAL TIME: [address]: Willam TID: [id number]
--- NOTE | 2021-10-09 12:47 | NUR ---
Discharge Note: VIANNEY CAVAZOS NODAWAY Discharge instructions and discharge home medications reviewed with Patient and a copy given. All questions have been answered and understanding verbalized. The following instructions and handouts were given: Follow up instructions, weight restrictions, incisional care and s/s of infection, medication education, and worsening symptoms. Discontinued lines and drains: IV discontinued from right AC, skin intact with exceptions of 3 lap sites which dressings were CDI with no signs of drainage. Patient discharged to home with self care via private transportation, accompanied by daughter.
--- NOTE | 2021-10-12 12:08 | PATHOLOGY ---
[facility] Accession Number: [id number] . 01 Material submitted: . appendix - APPENDIX . 02 Diagnosis: Vermiform appendix, excision: - Severe acute appendicitis, with transmural inflammation and associated acute serositis. - Negative for malignancy. (MLK:steve; 10/12/2021) QMS 10/12/2021 1136 Local . 02 Electronically signed: . America Shepherd MD, Pathologist NPI- [id number] . 01 Gross description: . Fixative: Formalin Labeled: Appendix Appendix length: 6.3 cm Appendix diameter: 0.8 cm Mesoappendix: 5.8 x 3.6 x 2.3 cm Proximal margin: Closed with a staple line Serosa: Robertson-pink with moderate robertson-white purulent exudate along the mid and distal appendix Cut surface: Robertson-pink and grossly unremarkable Luminal diameter: 0.5 cm Perforation: A possible perforation is identified at the distal tip, measuring 0.3 cm (inked blue) Lesions/abnormalities: Previously described A1 Proximal margin (inked black) and distal tip, bisected A2 Mid appendix ([facility]; 10/09/2021) [facility] 10/09/2021 0900 Local . 02 Pathologist provided ICD-10: K35.80 . 02 CPT . 679644 Specimen Comment: A courtesy copy of this report has been sent to [phone], [phone] Specimen Comment: [id number] Specimen Comment: Report sent to / DR HSU Performed at: 01 [facility] [place] [address], [place], [place] [id number] MD Isra Morrow MD Phone: [phone] Performed at: 02 [facility] [address] [place], [place] [id number] MD Escobar Ruiz MD Phone: [phone]
== END 2021-10-09 12:17 | disposition home or self-care (01) | DRG 343 ==
LOC: ER 23:52 → 2 NORTH 10-08 01:12
PROVIDERS: ADMIT Internal Medicine; ATTEND Internal Medicine
PROC: 0DTJ4ZZ Resection of Appendix, Percutaneous Endoscopic Approach (ICD-10-PCS; principal; 2021-10-08 10:30)
DX: K35.80 Unspecified acute appendicitis (principal); E78.5 Hyperlipidemia, unspecified; G25.81 Restless legs syndrome; I10 Essential (primary) hypertension; M10.9 Gout, unspecified; Z20.822 Contact with and (suspected) exposure to COVID-19; Z83.3 Family history of diabetes mellitus
CPT/HCPCS: 36415; 71275; 74174; 80048; 80053; 81001; 82962; 83605; 83690; 84484; 85025; 85610; 85730; 86850; 86900; 86901; 87040; 87426; 88304; 93005; 96361; 96365; 96367; 96375; A4213; A4314; A4364; A4930; A6219; J1100; J2270; J2405; J2543; J2704; J3010; J3490; J7030; J7060; J7120; J7121; Q9967; 99285-25; G0378